=== PATIENT | male | born 1945 | race Caucasian/White ===

== ENCOUNTER 2016-10-23 06:11 | Day surgery (SDC) | payer MEDICARE, OTHER ==
[2016-10-23] MEDS ORDERED: LACTATED RINGERS 1,000 ML IV ONE ×3 (06:56→10:15)
[2016-10-23] MEDS ORDERED: ceFAZolin 1 GM VIAL ONE (07:06)
[2016-10-23] MEDS ORDERED: VANCOMYCIN INJ 1 GM in SODIUM CHLORIDE 0.9% 250 ML IV ONE (08:00)
[2016-10-23] MEDS ORDERED: BUPIVACAINE 0.5% PF 30 ML VIAL INFIL ONE ×2 (08:14→09:20)
[2016-10-23] MEDS ORDERED: DEXAMETHASONE 4 MG/ML VIAL IVP ONE (08:20)
[2016-10-23] MEDS ORDERED: LIDOCAINE-MPF 2% 5 ML VIAL IM ONE (08:20)
[2016-10-23] MEDS ORDERED: ROCURONIUM 50 MG/5 ML VIAL IVP ONE (08:20)
[2016-10-23] MEDS ORDERED: PROPOFOL 200 MG/20 ML VIAL IVP ONE (08:20)
[2016-10-23] MEDS ORDERED: ePHEDrine 50 MG/ML AMP IVP ONE (08:20)
[2016-10-23] MEDS ORDERED: MIDAZOLAM 2 MG/2 ML VIAL IVP ONE (08:20)
[2016-10-23] MEDS ORDERED: ONDANSETRON 4 MG/2 ML VIAL IVP ONE (08:20)
[2016-10-23] MEDS ORDERED: ACETAMINOPHEN 1,000 MG/100 ML VIAL IV ONE (08:20)
[2016-10-23] MEDS ORDERED: fentaNYL 100 MCG/2 ML VIAL IVP ONE (08:20)
[2016-10-23] MEDS ORDERED: SUCCINYLCHOLINE 200 MG/10 ML VIAL IVP ONE (08:20)
== END 2016-10-23 06:12 | disposition home or self-care (01) ==
PROC: 0YU54JZ Supplement Right Inguinal Region with Synthetic Substitute, Percutaneous Endoscopic Approach (ICD-10-PCS; principal; 2016-10-23 07:30)
DX: K40.90 Unilateral inguinal hernia, without obstruction or gangrene, not specified as recurrent (principal); I10 Essential (primary) hypertension; E78.5 Hyperlipidemia, unspecified; Z79.82 Long term (current) use of aspirin; Z82.49 Family history of ischemic heart disease and other diseases of the circulatory system; Z87.891 Personal history of nicotine dependence
CPT/HCPCS: 49650; C1781; J3370; J7120

== ENCOUNTER 2017-07-12 14:46 | Outpatient (CLI) | payer MEDICARE, OTHER ==
[2017-07-12 12:24] LABS: BASOPHILS # (AUTO) 0.1 10^3/uL (0.0-0.1); BASOPHILS % (AUTO) 1.1 %; EOSINOPHILS # (AUTO) 0.3 10^3/uL (0.0-0.7); EOSINOPHILS % (AUTO) 4.3 %; HCT - HEMATOCRIT 45.3 % (42.0-52.0); HGB - HEMOGLOBIN 15.4 g/dL (14.0-18.0); LYMPHOCYTES # (AUTO) 2.1 10^3/uL (1.5-3.5); LYMPHOCYTES % (AUTO) 34.1 %; MEAN CORPUSCULAR HEMOGLOBIN 32.2 pg (27.0-31.0); MEAN CORPUSCULAR HGB CONC 34.1 g/dL (32.0-36.0); MEAN CORPUSCULAR VOLUME 94.5 fL (80.0-94.0); MEAN PLATELET VOLUME 8.2 fL (7.4-11.4); MONOCYTES # (AUTO) 0.6 10^3/uL (0.0-1.0); MONOCYTES % (AUTO) 9.6 %; NEUTROPHILS # (AUTO) 3.1 10^3/uL (1.5-6.6); NEUTROPHILS % (AUTO) 50.9 %; RED BLOOD COUNT 4.79 10^6/uL (4.70-6.10)
[2017-07-12 12:49] LABS: ALBUMIN/GLOBULIN RATIO 1.4 (1.0-2.2); BILIRUBIN,TOTAL 0.6 mg/dL (0.2-1.0); BUN - BLOOD UREA NITROGEN 12 mg/dL (6-20); CALCIUM 8.8 mg/dL (8.5-10.3); CARBON DIOXIDE - CO2 27 mmol/L (21-32); CHLORIDE 103 mmol/L (101-111); CHOL/HDL RATIO 4.2 (<5.0); CHOLESTEROL 190 mg/dL; CREATININE 1.1 mg/dL (0.6-1.2); GFR - MDRD 66 (>89); GLUCOSE 83 mg/dL (70-100); HDL CHOLESTEROL 45 mg/dL; LDL/HDL RATIO 2.8 (<3.6); POTASSIUM 3.6 mmol/L (3.5-5.0); SODIUM 136 mmol/L (135-145); TOTAL PROTEIN 6.9 g/dL (6.7-8.2); TRIGLYCERIDES 87 mg/dL; VLDL CHOLESTEROL 17 mg/dL
== END 2017-07-12 14:47 | disposition home or self-care (01) ==
LOC: LAB.WCP 14:46
PROVIDERS: ATTEND Family Medicine
DX: K40.90 Unilateral inguinal hernia, without obstruction or gangrene, not specified as recurrent (principal); I10 Essential (primary) hypertension; Z12.5 Encounter for screening for malignant neoplasm of prostate; N40.0 Benign prostatic hyperplasia without lower urinary tract symptoms; E78.5 Hyperlipidemia, unspecified
CPT/HCPCS: 36415; 80053; 80061; 85025; G0103; 84153

== ENCOUNTER 2018-07-29 07:50 | Outpatient (CLI) | payer MEDICARE, OTHER ==
[2018-07-29 14:40] LABS: BASOPHILS % (AUTO) 0.9 %; EOSINOPHILS # (AUTO) 0.3 10^3/uL (0.0-0.7); EOSINOPHILS % (AUTO) 5.8 %; HGB - HEMOGLOBIN 14.2 g/dL (14.0-18.0); LYMPHOCYTES # (AUTO) 1.8 10^3/uL (1.5-3.5); LYMPHOCYTES % (AUTO) 35.1 %; MEAN CORPUSCULAR HEMOGLOBIN 32.2 pg (27.0-31.0); MEAN CORPUSCULAR HGB CONC 33.9 g/dL (32.0-36.0); MEAN CORPUSCULAR VOLUME 95.1 fL (80.0-94.0); MONOCYTES # (AUTO) 0.6 10^3/uL (0.0-1.0); MONOCYTES % (AUTO) 11.7 %; NEUTROPHILS # (AUTO) 2.4 10^3/uL (1.5-6.6); NEUTROPHILS % (AUTO) 46.5 %; PLT - PLATELET COUNT 256 10^3/uL (130-450); RED CELL DISTRIBUTION WIDTH 13.4 % (12.0-15.0); WHITE BLOOD COUNT 5.1 x10^3/uL (4.8-10.8)
[2018-07-29 15:04] LABS: ALBUMIN 3.8 g/dL (3.2-5.5); ALBUMIN/GLOBULIN RATIO 1.3 (1.0-2.2); ALKALINE PHOSPHATASE 48 IU/L (42-121); ALT ALANINE AMINOTRANSFERASE 14 IU/L (10-60); AST ASPARTATE AMINOTRANSFERASE 19 IU/L (10-42); BILIRUBIN,TOTAL 0.8 mg/dL (0.2-1.0); BUN - BLOOD UREA NITROGEN 19 mg/dL (6-20); CALCIUM 8.5 mg/dL (8.5-10.3); CARBON DIOXIDE - CO2 26 mmol/L (21-32); CHLORIDE 103 mmol/L (101-111); CHOL/HDL RATIO 4.3 (<5.0); CHOLESTEROL 188 mg/dL; CREATININE 1.1 mg/dL (0.6-1.2); GFR - MDRD 65 (>89); GLUCOSE 90 mg/dL (70-100); HDL CHOLESTEROL 44 mg/dL; LDL CHOLESTEROL,CALCULATED 119 mg/dL; LDL/HDL RATIO 2.7 (<3.6); SODIUM 137 mmol/L (135-145); TOTAL PROTEIN 6.7 g/dL (6.7-8.2); VLDL CHOLESTEROL 25 mg/dL
== END 2018-07-29 23:59 ==
LOC: LAB.WCP 07:50
PROVIDERS: ATTEND Family Medicine
DX: I10 Essential (primary) hypertension (principal); E78.9 Disorder of lipoprotein metabolism, unspecified; Z12.5 Encounter for screening for malignant neoplasm of prostate
CPT/HCPCS: 36415; 80053; 80061; 85025; G0103; 83721; 84153

== ENCOUNTER 2020-05-05 08:09 | Outpatient (CLI) | payer MEDICARE, OTHER ==
[2020-05-05 12:18] LABS: BASOPHILS # (AUTO) 0.1 10^3/uL (0.0-0.1); BASOPHILS % (AUTO) 1.5 %; EOSINOPHILS # (AUTO) 0.2 10^3/uL (0.0-0.7); EOSINOPHILS % (AUTO) 4.6 %; LYMPHOCYTES # (AUTO) 1.5 10^3/uL (1.5-3.5); LYMPHOCYTES % (AUTO) 31.5 %; MEAN CORPUSCULAR HEMOGLOBIN 32.7 pg (27.0-31.0); MEAN CORPUSCULAR HGB CONC 33.8 g/dL (32.0-36.0); MEAN CORPUSCULAR VOLUME 96.7 fL (80.0-94.0); MEAN PLATELET VOLUME 10.6 fL (7.4-11.4); MONOCYTES # (AUTO) 0.5 10^3/uL (0.0-1.0); MONOCYTES % (AUTO) 9.9 %; NEUTROPHILS # (AUTO) 2.5 10^3/uL (1.5-6.6); NEUTROPHILS % (AUTO) 52.1 %; PLT - PLATELET COUNT 272 10^3/uL (130-450); RED BLOOD COUNT 4.59 10^6/uL (4.70-6.10); RED CELL DISTRIBUTION WIDTH 13.2 % (12.0-15.0); WHITE BLOOD COUNT 4.8 x10^3/uL (4.8-10.8)
[2020-05-05 12:45] LABS: ALBUMIN 4.3 g/dL (3.2-5.5); ALBUMIN/GLOBULIN RATIO 1.7 (1.0-2.2); ALKALINE PHOSPHATASE 48 IU/L (42-121); ALT ALANINE AMINOTRANSFERASE 21 IU/L (10-60); AST ASPARTATE AMINOTRANSFERASE 24 IU/L (10-42); BILIRUBIN,TOTAL 0.7 mg/dL (0.2-1.0); BUN - BLOOD UREA NITROGEN 14 mg/dL (6-20); CARBON DIOXIDE - CO2 26 mmol/L (21-32); CHLORIDE 104 mmol/L (101-111); CHOL/HDL RATIO 3.6 (<5.0); CHOLESTEROL 150 mg/dL; GLUCOSE 87 mg/dL (70-100); HDL CHOLESTEROL 42 mg/dL; LDL CHOLESTEROL,CALCULATED 90 mg/dL; LDL/HDL RATIO 2.1 (<3.6); SODIUM 137 mmol/L (135-145); TOTAL PROTEIN 6.9 g/dL (6.7-8.2); VLDL CHOLESTEROL 18 mg/dL
== END 2020-05-05 23:59 | disposition home or self-care (01) ==
LOC: LAB.WCP 08:09
PROVIDERS: ATTEND Family Medicine
DX: I10 Essential (primary) hypertension (principal); E78.5 Hyperlipidemia, unspecified; Z12.5 Encounter for screening for malignant neoplasm of prostate
CPT/HCPCS: 36415; 80053; 80061; 84443; 85025; G0103; 83721; 84153

== ENCOUNTER 2020-10-08 12:11 | Observation (INO) | payer MEDICARE, OTHER ==
[2020-10-08 12:48] LABS: BASOPHILS # (AUTO) 0.1 10^3/uL (0.0-0.1); BASOPHILS % (AUTO) 1.4 %; EOSINOPHILS % (AUTO) 0.5 %; HGB - HEMOGLOBIN 15.5 g/dL (14.0-18.0); LYMPHOCYTES # (AUTO) 1.3 10^3/uL (1.5-3.5); LYMPHOCYTES % (AUTO) 22.6 %; MEAN CORPUSCULAR HEMOGLOBIN 31.1 pg (27.0-31.0); MEAN CORPUSCULAR HGB CONC 33.3 g/dL (32.0-36.0); MEAN CORPUSCULAR VOLUME 93.4 fL (80.0-94.0); MEAN PLATELET VOLUME 10.1 fL (7.4-11.4); MONOCYTES # (AUTO) 0.4 10^3/uL (0.0-1.0); MONOCYTES % (AUTO) 7.3 %; PLT - PLATELET COUNT 256 10^3/uL (130-450); RED BLOOD COUNT 4.99 10^6/uL (4.70-6.10); RED CELL DISTRIBUTION WIDTH 13.2 % (12.0-15.0); WHITE BLOOD COUNT 5.9 x10^3/uL (4.8-10.8)
--- NOTE | 2020-10-08 12:49 | ED Physician Documentation ---
History of Present Illness - Stated complaint Stated Complaint: BLOODY STOOL - Chief complaint Chief Complaint: Abd Pain - Additonal information Additional information: This is a very well-appearing 75-year-old male that presents to the emergency department for evaluation of both hematochezia and melena. He reports that last night he had a softer bowel movement that was black and tarry. This morning he is also had some black stools but has also noticed an increased amount of bright red stool. He denies any abdominal pain. No recent illness. No vomiting. does not feel light headed. no near syncope. no dizziness He does take about 400 mg of ibuprofen daily. He is not taking any anticoagulants or is on Coumadin. Does report that in 2008 at the time of his last colonoscopy he was told that he had diverticulosis. Patient quit smoking and drinking about 35 years ago. He is otherwise healthy and exercises daily PMH: Hypertension, hyperlipidemia Meds: 81 mg aspirin daily, atorvastatin daily, amlodipine 10 mg daily. Review of Systems Constitutional: denies: Fever, Chills Eyes: denies: Loss of vision, Decreased vision Ears: reports: Reviewed and negative Nose: reports: Reviewed and negative Throat: reports: Reviewed and negative Cardiac: reports: Reviewed and negative Respiratory: reports: Reviewed and negative GI: reports: Bloody / black stool, Reviewed and negative. denies: Abdominal Pain, Abdominal Swelling, Nausea, Vomiting, Hematemesis : denies: Dysuria, Frequency, Hesitancy Skin: denies: Rash, Lesions Musculoskeletal: reports: Reviewed and negative Neurologic: reports: Reviewed and negative PD PAST MEDICAL HISTORY - Past Medical History Cardiovascular: Hypertension, High cholesterol Respiratory: None Endocrine/Autoimmune: None GI: None : Benign prostate hypertrophy, Retention, Nocturia HEENT: Chronic vision loss, Dental implants Psych: None Musculoskeletal: None Derm: None - Past Surgical History General: Colonoscopy HEENT: Tonsil/Adenoidectomy - Present Medications Home Medications: Ambulatory Orders Medication Instructions Recorded Confirmed Aspirin 81 mg PO DAILY 09/01/16 10/23/16 Simvastatin 20 mg PO DAILY 09/01/16 10/23/16 Amlodipine Besylate [Norvasc] 10/08/20 - Allergies Allergies/Adverse Reactions: Allergies Allergy/AdvReac Type Severity Reaction Status Date / Time amoxicillin Allergy Rash Verified 09/01/16 13:52 PD ED PE EXPANDED - General General: Alert, No acute distress, Well developed/nourished - Neck Neck: Supple w/out meningeal sx. No: Adenopathy - Cardiac Cardiac: Regular Rate, Regular Rhythm, Radial strong equal, Pedal strong equal, Cap refill < 2 sec. No: Murmur Present - Respiratory Respiratory: Clear to ausultation lorraine. No: Distress, Labored - Abdomen Abdomen: Normal Bowel sounds. No: Distended, Tender to palpation - Rectal Rectal: Normal Tone, Other (Digital rectal exam reveals a large amount of Hematochezia) - Back Back: Normal exam. No: Vertebral tenderness, Soft tissue tenderness - Derm Derm: Normal color. No: Rash - Extremities Extremities: Normal. No: Deformity, Tenderness - Neuro Neuro: Alert and Oriented X 3, CNII-XII intact. No: Confused, Disoriented - GCS Eye Opening: Spontaneous Motor: Obeys Commands Verbal: Oriented Total: 15 Results - Vitals Vitals: Vital Signs - 24 hr 10/08/20 10/08/20 10/08/20 12:24 13:35 14:50 Temperature 36.8 C Heart Rate 85 72 70 Respiratory 16 18 18 Rate Blood Pressure 185/104 H 158/97 H 176/95 H O2 Saturation 99 99 99 Oxygen O2 Source Room air - EKG (time done) 1259 Rate: Rate (enter#) (64) Rhythm: Atrial fibrillation (possible flutter as well) [place]: Other (abnormal ) Intervals: No: Prolonged QT QRS: Normal Ischemia: Non specific changes (t wave flattening inferior lead) Compare to prior EKG: Old EKG unavailable Computer interpretation: Agree with computer - Labs Labs: Laboratory Tests 10/08/20 10/08/20 10/08/20 12:37 12:37 12:37 WBC 5.9 RBC 4.99 Hgb 15.5 Hct 46.6 MCV 93.4 MCH 31.1 H MCHC 33.3 RDW 13.2 Plt Count 256 MPV 10.1 Neut # (Auto) 4.0 Lymph # (Auto) 1.[address] [place] # (Auto) 0.4 Eos # (Auto) 0.0 Baso # (Auto) 0.1 Absolute Nucleated RBC 0.00 Nucleated RBC % 0.0 PT 14.1 H INR 1.3 H Sodium 143 Potassium 4.3 Chloride 101 Carbon Dioxide 24 Anion Gap 18.0 H BUN 21 H Creatinine 1.2 Estimated GFR (MDRD) 59 L Glucose 109 H Calcium 10.1 Total Bilirubin 0.6 AST 26 ALT 22 Alkaline Phosphatase 64 Total Protein 8.0 Albumin 4.8 Globulin 3.2 Albumin/Globulin Ratio 1.5 Lipase 29 Urine Color Urine Clarity Urine pH Ur Specific Alvin Urine Protein Urine Glucose (UA) Urine Ketones Urine Occult Blood Urine Nitrite Urine Bilirubin Urine Urobilinogen Ur Leukocyte Esterase Ur Microscopic Review Urine Culture Comments Blood Type Blood Type Recheck Antibody Screen 10/08/20 10/08/20 10/08/20 12:55 13:14 13:41 WBC RBC Hgb Hct MCV MCH MCHC RDW Plt Count MPV Neut # (Auto) Lymph # (Auto) [place] # (Auto) Eos # (Auto) Baso # (Auto) Absolute Nucleated RBC Nucleated RBC % PT INR Sodium Potassium Chloride Carbon Dioxide Anion Gap BUN Creatinine Estimated GFR (MDRD) Glucose Calcium Total Bilirubin AST ALT Alkaline Phosphatase Total Protein Albumin Globulin Albumin/Globulin Ratio Lipase Urine Color YELLOW Urine Clarity CLEAR Urine pH 6.0 Ur Specific Alvin 1.025 Urine Protein NEGATIVE Urine Glucose (UA) NEGATIVE Urine Ketones NEGATIVE Urine Occult Blood NEGATIVE Urine Nitrite NEGATIVE Urine Bilirubin NEGATIVE Urine Urobilinogen 0.2 (NORMAL) Ur Leukocyte Esterase NEGATIVE Ur Microscopic Review NOT INDICATED Urine Culture Comments NOT INDICATED Blood Type A POSITIVE Blood Type Recheck A POSITIVE Antibody Screen NEGATIVE - Rads (name of study) CT abd Radiology: Final report received (Colonic diverticulosis without acute diverticulitis. No discrete bowel wall thickening or mass lesions identified. Small cortical region of hypoenhancement in the left kidney without a discrete mass visualized. Findings are nonspecific.) PD MEDICAL DECISION MAKING - ED course Complexity details: reviewed results, re-evaluated patient, considered differential, d/w patient ED course: 75-year-old male presents the emergency department with acute melena and now hematochezia that began last night. He has no fevers vomiting abdominal pain or near syncope. He is hemodynamically stable. Screening EKG today does reveal that he is in atrial fib/flutter. This is a new finding for the gentleman. However he denies any known history of atrial fibrillation though he says over the last few months his blood pressure monitors have showed an irregular heart rate. High-sensitivity troponin is negative. Screening hemoglobin is greater than 15. Electrolytes unremarkable. This case was discussed with Dr. Juanito Edmonds the on- call surgeon today. It is possible to admit this patient to the hospital for a colonoscopy over the weekend however Dr. Edmonds would not be the one to do it. I did speak with the surgeon on-call tomorrow Dr. Fall and she feels it is appropriate to bring the patient into the hospital for scoping. Bowel prep will began this evening. I did speak with the on-call hospitalist And show to he agrees to bring patient in on an observation status for further management of the GI bleed. Unfortunately given the active bleed anticoagulation is not possible for this gentleman but moving forward he will need cardiology consultation and outpatient stress test and risk stratification. Today's chads vas 2 score is a 3. Departure - Departure Disposition: ED Place in Observation Clinical Impression: Atrial fibrillation and flutter GI bleed Qualifiers: GI bleed type/associated pathology: unspecified gastrointestinal hemorrhage type Qualified Code(s): K92.2 - Gastrointestinal hemorrhage, unspecified
[2020-10-08 13:01] LABS: ALBUMIN 4.8 g/dL (3.2-5.5); ALBUMIN/GLOBULIN RATIO 1.5 (1.0-2.2); BILIRUBIN,TOTAL 0.6 mg/dL (0.2-1.0); CALCIUM 10.1 mg/dL (8.5-10.3); CREATININE 1.2 mg/dL (0.6-1.2)
[2020-10-08 13:10] LABS: INR 1.3 (0.8-1.2); PT - PROTHROMBIN TIME 14.1 secs (9.9-12.6)
[2020-10-08] MEDS ORDERED: IOVERSOL 320 100 ML VIAL IVP ONE ×2 (13:23→15:18)
[2020-10-08 13:32] LABS: BILIRUBIN,URINE NEGATIVE (NEGATIVE); GLUCOSE, URINE (UA) NEGATIVE (NEGATIVE); KETONES,URINE (UA) NEGATIVE (NEGATIVE); LEUKOCYTE ESTERASE, URINE NEGATIVE (NEGATIVE); NITRITE,URINE NEGATIVE (NEGATIVE); OCCULT BLOOD,URINE NEGATIVE (NEGATIVE); PROTEIN,URINE NEGATIVE (NEGATIVE); UROBILINOGEN,URINE 0.2 (NORMAL) E.U./dL (NORMAL)
[2020-10-08 13:33] LABS: CLARITY,URINE CLEAR (CLEAR)
--- NOTE | 2020-10-08 13:45 | CT Report ---
PROCEDURE: Abdomen/Pelvis W INDICATIONS: bloody stool CONTRAST: IV CONTRAST: Optiray 320 ml: 100 PO CONTRAST: *NO PO CONTRAST TECHNIQUE: After the administration of intravenous contrast, 5 mm thick sections acquired from the diaphragms to the symphysis. 5 mm thick coronal and sagittal reformats were acquired. For radiation dose reducti on, the following was used: automated exposure control, adjustment of mA and/or kV according to [place] ent size. COMPARISON: None. FINDINGS: Image quality: Excellent. ABDOMEN: Lung bases: There is mild dependent atelectasis bilaterally. Heart size is enlarged. There is a small hiatal hernia. Solid organs: Evaluation of the liver demonstrates no focal hepatic lesions. Gallbladder appears wit hin normal limits without calcified gallstones. Biliary system is non dilated. The spleen is normal in size. Pancreas enhances normally without peripancreatic fat stranding or fluid collections. No ad renal nodules. Kidneys demonstrate no hydronephrosis. There is a small indistinct region of cortical hypoenhancement posteriorly in the left kidney. Peritoneum and bowel: Small bowel loops demonstrate normal wall thickness and caliber. The appendix i s normal in appearance. Extensive diverticulosis is demonstrated throughout the colon without wall th ickening or inflammatory fat stranding to suggest acute diverticulitis. No discrete mass is visualize d. There are air-fluid levels within the distal colon suggestive of a gastroenteritis. No free fluid or air. Nodes and vessels: No retroperitoneal or mesenteric adenopathy by size criteria. Aorta and inferior vena cava are normal in size. Miscellaneous: No ventral hernias. PELVIS: Genitourinary: Bladder wall thickness is normal. Miscellaneous: No inguinal hernias or adenopathy. Bones: No suspicious bony lesions. No vertebral body compression fractures. IMPRESSION: 1. Colonic diverticulosis without acute diverticulitis. 2. No discrete bowel wall thickening or mass lesions identified. Recommend follow-up with colonoscopy if clinically indicated. 3. Small cortical region of hypoenhancement in the left kidney without a discrete mass visualized. Th e findings are nonspecific and may represent sequelae of infection, trauma, or infarct. No perinephri c fat stranding or fluid collections. Reviewed by: Oumar Quinones MD on 10/08/2020 1:44 PM PST Approved by: Oumar Quinones MD on 10/08/2020 1:44 PM PST Station ID: [id number]
[2020-10-08] MEDS ORDERED: SODIUM CHLORIDE FLUSH 0.9% 10 ML SYRINGE IVP PRN (14:11)
[2020-10-08] MEDS ORDERED: SODIUM CHLORIDE 0.9% 1,000 ML IV STA (14:48)
--- NOTE | 2020-10-08 15:58 | HISTORY & PHYSICAL EXAMINATION ---
Chief Complaint - Chief Complaint Chief Complaint: black stool , and blood in toilet bowl History of Present Illness - Admitted From Admitted From:: home - History Obtained From Records Reviewed: ED notes History obtained from: patient , ED notes - History of Present Illness HPI Comment/Other: Mr Guerrero is a 75 yo male who presented to the ED after reports of black stool starting last evening , with some bright red blood in bowl, which happened again this morning. No corresponidng near syncope, chsst pain, diaphroesis, palpitations when upright. No hx GIBleed. He does take daily ASA 81mg for "prevention; and takes 1-2 200 mg Ibuprofens each morning for "the various aches and pains that come with age 75". Not on anticoagulation. Denies epigastric pain, no hematemeis or other emesis. No heavy ETOH use. Non smoker.non drinker (last 35+ yrs ago) In the ED he was hemodynamically stable (actually hypertensive), and did have witnessed BRBPR in ED. (also seen by me, red blood in toilet bowl andsmall bits of black stool; no melena when seen by me). NO clots Pt denies hx of hemorrhoids. no significant BUN increase CT abd done in Ed notable for extensive diverticulsis/ no itis. Had colonoscopy in 2008, just diverticulosis found. Incidentally in the ED he was found to be in rate controlled atrial fibrillation/atrial flutter. History - Past Medical History Cardiovascular: reports: Hypertension, High cholesterol Respiratory: reports: None Endocrine/Autoimmune: reports: None GI: reports: None : reports: Benign prostate hypertrophy, Retention, Nocturia HEENT: reports: Chronic vision loss, Dental implants Psych: reports: None Musculoskeletal: reports: None Derm: reports: None MRSA Hx?: No - Past Surgical History General: reports: Colonoscopy HEENT: reports: Tonsil/Adenoidectomy - Family & Social History Family History: Mother: (mom old age, dad gI sepsis), Father: , CAD ([place] dad and brother at 48 [place]), Brother: CAD Family History Comment/Other: 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 One sister healthy, his brother of [place] at 48 Living arrangement: At home - Substance History Use: Uses substance without health or social issues: NONE Meds/Allgy - Home Medications Home Medications: Ambulatory Orders Medication Instructions Recorded Confirmed Aspirin 81 mg PO DAILY 09/01/16 10/08/20 Simvastatin 20 mg PO DAILY 09/01/16 10/23/16 Amlodipine Besylate [Norvasc] 10/08/20 - Allergies Allergies/Adverse Reactions: Allergies Allergy/AdvReac Type Severity Reaction Status Date / Time amoxicillin Allergy Rash Verified 09/01/16 13:52 Review of Systems - Constitutional Constitutional: denies: Fatigue, Fever, Chills, Diaphoresis, Night sweats, Weight gain, Weight loss - Eyes Eyes: reports: Corrective lenses. denies: Field loss, Vision loss - Cardiovascular Cariovascular: denies: Irregular heart rate, Lightheadedness, Syncope, Exertional dyspnea, Orthopnea - Respiratory Respiratory: denies: Cough, Wheezing, Orthopnea, SOB at rest, SOB with exertion - Gastrointestinal Gastrointestinal: reports: Black stools, Other (as per HPI). denies: Abdominal pain, Rectal bleeding - Genitourinary Genitourinary: reports: Frequency, Other (BPH) - Musculoskeletal Musculoskeletal: reports: Joint pain (osteoarthritic joint pain, no erythema or warmth) - Integumentary Integumentary: denies: Rash - Neurological Neurological: denies: General weakness, Focal weakness, Dizziness, Memory problems, Abnormal gait - Psychiatric Psychiatric: denies: Depression - Endocrine Endocrine: denies: Intolerance to cold, Intolerance to heat Exam - Vital Signs Reviewed Vital Signs: Yes Vital Signs: Vital Signs x48h Temp Pulse Resp BP Pulse Ox 10/08/20 15:30 36.2 C L 72 18 140/87 H 99 10/08/20 14:50 70 18 176/95 H 99 10/08/20 13:35 72 18 158/97 H 99 10/08/20 12:24 36.8 C 85 16 185/104 H 99 - Physical Exam General Appearance: positive: No acute distress, Alert, Other (Pleasant older male, lying on stretcher in ED, no significant pallor, able to get up to use bathroom, no lightheadedness) Eyes Bilateral: positive: PERRL, EOMI, Other (glasses) ENT: positive: No signs of dehydration, Other (partial dentures upper and lower) Neck: positive: No JVD. negative: Carotid bruit Respiratory: positive: Chest non-tender, No respiratory distress, Breath sounds nml Cardiovascular: positive: Regular rate & rhythm, Irregularly irregular ( rate controlled ~ 70's, aflutter on ED monitor), Systolic murmur (2/6 SM, holosystolic). negative: Tachycardia Abdomen: positive: Nml bowel sounds, No distention, Other (no epigastric tenderness). negative: Tenderness Skin: positive: Warm, Dry. negative: Pallor Extremities: negative: Pedal edema Neurologic/Psychiatric: positive: Oriented x3, Mood/affect nml Conclusion/Plan - Problem List (1) GI bleed Conclusion/Plan: hemodynamically stable, not symptomatically orthostatic in ED or before arrival check baseline orthostatics on arrival to floor Upper GIB risk of daily ASA and NSAID (but BRBPR suggestive of lower)/ diverticular ? w diverticulosis on CT. No clots ED contacted DR Guevara who is on this weekend re: EGD andcolonoscopy 10/09 NPO after MN Suprep tonight recheck h/h at 9p (and will get INR at that time/ doubt elevated) NS at 100cc/hr Code status ; full Qualifiers: GI bleed type/associated pathology: unspecified gastrointestinal hemorrhage type Qualified Code(s): K92.2 - Gastrointestinal hemorrhage, unspecified (2) Atrial fibrillation and flutter Conclusion/Plan: no prior diagnosis asymptomatic no hx symptoms suggestive of TIA or stroke (and no deficits on exam) -[id number] =3 3.2 % stroke risk / yr, 4.6% risk stroke/TIA/systemic embolism; warrants anticoagulation after eg bleed evaluated/controlled Discussed w/ patient /initaled discussion of anticoagulation for stroke prevention rate controlled, no indication for BB or CCB currently but could consider change amlodipine to nondihydropiridine CCB -check TSH -tele while here -cant get echo this weekend; further eval as outpt, has never had ischemic symtpoms (3) Osteoarthritis Conclusion/Plan: On d/c if upper GIb source identified ASA should stop on d/c ; has family hx of CAD but data not good for primary prevention; bleed risk outweighss benefit; and as per #2, warrants anticoagulation once GI bleed source addressed (4) Hypertension Conclusion/Plan: on amlodipine at home modest elevation on admit In event of more brisk bleed, will hold amlodipine - Lab Results Fish Bones: 10/08/20 12:37 10/08/20 12:37
[2020-10-08] MEDS: SODIUM CHLORIDE 0.9% 1,000 ML IV SCH (16:27)
[2020-10-08] MEDS: SODIUM CHLORIDE FLUSH 0.9% 10 ML SYRINGE IVP SCH (16:27)
[2020-10-08 16:54] LABS: C. PNEUMONIAE- RESP PCR PANEL NOT DETECTED
--- NOTE | 2020-10-08 17:25 | HISTORY & PHYSICAL EXAMINATION ---
Chief Complaint - Chief Complaint Chief Complaint: dark stool and bloody stool several times over the last 24 hours GI Bleed Admit Template - History Obtained From History obtained from: Patient Exam limitations: No limitations - History of Present Illness Severity at the worst: reports: Mild Bleeding quality: reports: Black, tarry stool, Arben blood stool Context-bleeding started w/: reports: Spontaneous Timing: reports: Abrupt onset Duration: reports: Hours: (18 hours) HPI Comment/Other: He denies any abdominal discomfort or upper or lower intestinal symptoms. He had dark stool last pm and then bloody stool today. He takes an aspirin daily and ibuprofen with breakfast 1 or 2 a few times per week. No prior history of bleeding. Last colonoscopy was in 2008. PMH/PSH - Past Medical History Cardiovascular: positive: Hypertension, High cholesterol Respiratory: positive: None Endocrine/Autoimmune: positive: None GI: positive: None : positive: Benign prostate hypertrophy, Retention, Nocturia HEENT: positive: Chronic vision loss, Dental implants Psych: positive: None Musculoskeletal: positive: None Derm: positive: None MRSA Hx?: No - Past Surgical History General: positive: Colonoscopy HEENT: positive: Tonsil/Adenoidectomy Social & Family Hx - Social History Does the pt smoke?: No Smoking Status: Never smoker Meds/Allgy - Home Medications Home Medications: Ambulatory Orders Medication Instructions Recorded Confirmed Aspirin 81 mg PO DAILY 09/01/16 10/08/20 Simvastatin 20 mg PO DAILY 09/01/16 10/23/16 Amlodipine Besylate [Norvasc] 10/08/20 - Allergies Allergies/Adverse Reactions: Allergies Allergy/AdvReac Type Severity Reaction Status Date / Time amoxicillin Allergy Rash Verified 09/01/16 13:52 Review of Systems - Other Findings Other Findings: 10 pt ros as above otherwise unremarkable Exam - Vital Signs Reviewed Vital Signs: Yes Vital Signs: Vital Signs x48h Temp Pulse Pulse Resp BP BP Pulse Ox 10/08/20 16:00 36.5 C 68 18 149/90 H 100 10/08/20 15:30 36.2 C L 72 18 140/87 H 99 10/08/20 14:50 70 18 176/95 H 99 10/08/20 13:35 72 18 158/97 H 99 10/08/20 12:24 36.8 C 85 16 185/104 H 99 - Physical Exam General Appearance: positive: No acute distress, Alert Eyes Bilateral: positive: Normal inspection, PERRL ENT: positive: No signs of dehydration Neck: positive: No JVD Respiratory: positive: No respiratory distress Cardiovascular: positive: Irregularly irregular Abdomen: positive: Non-tender, No distention Neurologic/Psychiatric: positive: Oriented x3 Results - Lab Results Fish Bones: 10/08/20 12:37 10/08/20 12:37 Other Lab Results: Lab Results x24hrs 10/08/20 10/08/20 10/08/20 Range/Units 15:45 13:41 13:14 WBC (4.8-10.8) x10^3/uL RBC (4.70-6.10) 10^6/uL Hgb (14.0-18.0) g/dL Hct (42.0-52.0) % MCV (80.0-94.0) fL MCH (27.0-31.0) pg MCHC (32.0-36.0) g/dL RDW (12.0-15.0) % Plt Count (130-450) 10^3/uL MPV (7.4-11.4) fL Neut # (Auto) (1.5-6.6) 10^3/uL Lymph # (Auto) (1.5-3.5) 10^3/uL [place] # (Auto) (0.0-1.0) 10^3/uL Eos # (Auto) (0.0-0.7) 10^3/uL Baso # (Auto) (0.0-0.1) 10^3/uL Absolute Nucleated RBC x10^3/uL Nucleated RBC % /100WBC PT (9.9-12.6) secs INR (0.8-1.2) Sodium (135-145) mmol/L Potassium (3.5-5.0) mmol/L Chloride (101-111) mmol/L Carbon Dioxide (21-32) mmol/L Anion Gap (6-13) BUN (6-20) mg/dL Creatinine (0.6-1.2) mg/dL Estimated GFR (MDRD) (>89) Glucose (70-100) mg/dL Calcium (8.5-10.3) mg/dL Total Bilirubin (0.2-1.0) mg/dL AST (10-42) IU/L ALT (10-60) IU/L Alkaline Phosphatase (42-121) IU/L Total Protein (6.7-8.2) g/dL Albumin (3.2-5.5) g/dL Globulin (2.1-4.2) g/dL Albumin/Globulin Ratio (1.0-2.2) Lipase (22-51) U/L Urine Color YELLOW Urine Clarity CLEAR (CLEAR) Urine pH 6.0 (5.0-7.5) PH Ur Specific [place] 1.025 (1.002-1.030) Urine Protein NEGATIVE (NEGATIVE) mg/dL Urine Glucose (UA) NEGATIVE (NEGATIVE) mg/dL Urine Ketones NEGATIVE (NEGATIVE) mg/dL Urine Occult Blood NEGATIVE (NEGATIVE) Urine Nitrite NEGATIVE (NEGATIVE) Urine Bilirubin NEGATIVE (NEGATIVE) Urine Urobilinogen 0.2 (NORMAL) (NORMAL) E.U./dL Ur Leukocyte Esterase NEGATIVE (NEGATIVE) Ur Microscopic Review NOT INDICATED Urine Culture Comments NOT INDICATED Nasal Adenovirus (PCR) NOT DETECTED Nasal B. parapertussis DNA (PCR) NOT DETECTED Nasal Coronavir 229E PCR NOT DETECTED Nasal Coronavir HKU1 PCR NOT DETECTED Nasal Coronavir NL63 PCR NOT DETECTED Nasal Coronavir OC43 PCR NOT DETECTED Nasal Enterovir/Rhinovir PCR NOT DETECTED Nasal Influenza B PCR NOT DETECTED Nasal Influenza A PCR NOT DETECTED Nasal Parainfluen 1 PCR NOT DETECTED Nasal Parainfluen 2 PCR NOT DETECTED Nasal Parainfluen 3 PCR NOT DETECTED Nasal Parainfluen 4 PCR NOT DETECTED Nasal RSV (PCR) NOT DETECTED Nasal B.pertussis DNA PCR NOT DETECTED Nasal C.pneumoniae (PCR) NOT DETECTED [place] Human Metapneumo PCR NOT DETECTED Nasal M.pneumoniae (PCR) NOT DETECTED Nasal SARS-CoV-2 (PCR) NOT DETECTED Blood Type Blood Type Recheck A POSITIVE Antibody Screen 10/08/20 10/08/20 10/08/20 Range/Units 12:55 12:37 12:37 WBC (4.8-10.8) x10^3/uL RBC (4.70-6.10) 10^6/uL Hgb (14.0-18.0) g/dL Hct (42.0-52.0) % MCV (80.0-94.0) fL MCH (27.0-31.0) pg MCHC (32.0-36.0) g/dL RDW (12.0-15.0) % Plt Count (130-450) 10^3/uL MPV (7.4-11.4) fL Neut # (Auto) (1.5-6.6) 10^3/uL Lymph # (Auto) (1.5-3.5) 10^3/uL [place] # (Auto) (0.0-1.0) 10^3/uL Eos # (Auto) (0.0-0.7) 10^3/uL Baso # (Auto) (0.0-0.1) 10^3/uL Absolute Nucleated RBC x10^3/uL Nucleated RBC % /100WBC PT 14.1 H (9.9-12.6) secs INR 1.3 H (0.8-1.2) Sodium 143 (135-145) mmol/L Potassium 4.3 (3.5-5.0) mmol/L Chloride 101 (101-111) mmol/L Carbon Dioxide 24 (21-32) mmol/L Anion Gap 18.0 H (6-13) BUN 21 H (6-20) mg/dL Creatinine 1.2 (0.6-1.2) mg/dL Estimated GFR (MDRD) 59 L (>89) Glucose 109 H (70-100) mg/dL Calcium 10.1 (8.5-10.3) mg/dL Total Bilirubin 0.6 (0.2-1.0) mg/dL AST 26 (10-42) IU/L ALT 22 (10-60) IU/L Alkaline Phosphatase 64 (42-121) IU/L Total Protein 8.0 (6.7-8.2) g/dL Albumin 4.8 (3.2-5.5) g/dL Globulin 3.2 (2.1-4.2) g/dL Albumin/Globulin Ratio 1.5 (1.0-2.2) Lipase 29 (22-51) U/L Urine Color Urine Clarity (CLEAR) Urine pH (5.0-7.5) PH Ur Specific [place] (1.002-1.030) Urine Protein (NEGATIVE) mg/dL Urine Glucose (UA) (NEGATIVE) mg/dL Urine Ketones (NEGATIVE) mg/dL Urine Occult Blood (NEGATIVE) Urine Nitrite (NEGATIVE) Urine Bilirubin (NEGATIVE) Urine Urobilinogen (NORMAL) E.U./dL Ur Leukocyte Esterase (NEGATIVE) Ur Microscopic Review Urine Culture Comments Nasal Adenovirus (PCR) Nasal B. parapertussis DNA (PCR) Nasal Coronavir 229E PCR Nasal Coronavir HKU1 PCR Nasal Coronavir NL63 PCR Nasal Coronavir OC43 PCR Nasal Enterovir/Rhinovir PCR Nasal Influenza B PCR Nasal Influenza A PCR Nasal Parainfluen 1 PCR Nasal Parainfluen 2 PCR Nasal Parainfluen 3 PCR Nasal Parainfluen 4 PCR Nasal RSV (PCR) Nasal B.pertussis DNA PCR Nasal C.pneumoniae (PCR) [place] Human Metapneumo PCR Nasal M.pneumoniae (PCR) Nasal SARS-CoV-2 (PCR) Blood Type A POSITIVE Blood Type Recheck Antibody Screen NEGATIVE 10/08/20 Range/Units 12:37 WBC 5.9 (4.8-10.8) x10^3/uL RBC 4.99 (4.70-6.10) 10^6/uL Hgb 15.5 (14.0-18.0) g/dL Hct 46.6 (42.0-52.0) % MCV 93.4 (80.0-94.0) fL MCH 31.1 H (27.0-31.0) pg MCHC 33.3 (32.0-36.0) g/dL RDW 13.2 (12.0-15.0) % Plt Count 256 (130-450) 10^3/uL MPV 10.1 (7.4-11.4) fL Neut # (Auto) 4.0 (1.5-6.6) 10^3/uL Lymph # (Auto) 1.3 L (1.5-3.5) 10^3/uL [place] # (Auto) 0.4 (0.0-1.0) 10^3/uL Eos # (Auto) 0.0 (0.0-0.7) 10^3/uL Baso # (Auto) 0.1 (0.0-0.1) 10^3/uL Absolute Nucleated RBC 0.00 x10^3/uL Nucleated RBC % 0.0 /100WBC PT (9.9-12.6) secs INR (0.8-1.2) Sodium (135-145) mmol/L Potassium (3.5-5.0) mmol/L Chloride (101-111) mmol/L Carbon Dioxide (21-32) mmol/L Anion Gap (6-13) BUN (6-20) mg/dL Creatinine (0.6-1.2) mg/dL Estimated GFR (MDRD) (>89) Glucose (70-100) mg/dL Calcium (8.5-10.3) mg/dL Total Bilirubin (0.2-1.0) mg/dL AST (10-42) IU/L ALT (10-60) IU/L Alkaline Phosphatase (42-121) IU/L Total Protein (6.7-8.2) g/dL Albumin (3.2-5.5) g/dL Globulin (2.1-4.2) g/dL Albumin/Globulin Ratio (1.0-2.2) Lipase (22-51) U/L Urine Color Urine Clarity (CLEAR) Urine pH (5.0-7.5) PH Ur Specific [place] (1.002-1.030) Urine Protein (NEGATIVE) mg/dL Urine Glucose (UA) (NEGATIVE) mg/dL Urine Ketones (NEGATIVE) mg/dL Urine Occult Blood (NEGATIVE) Urine Nitrite (NEGATIVE) Urine Bilirubin (NEGATIVE) Urine Urobilinogen (NORMAL) E.U./dL Ur Leukocyte Esterase (NEGATIVE) Ur Microscopic Review Urine Culture Comments Nasal Adenovirus (PCR) Nasal B. parapertussis DNA (PCR) Nasal Coronavir 229E PCR Nasal Coronavir HKU1 PCR Nasal Coronavir NL63 PCR Nasal Coronavir OC43 PCR Nasal Enterovir/Rhinovir PCR Nasal Influenza B PCR Nasal Influenza A PCR Nasal Parainfluen 1 PCR Nasal Parainfluen 2 PCR Nasal Parainfluen 3 PCR Nasal Parainfluen 4 PCR Nasal RSV (PCR) Nasal B.pertussis DNA PCR Nasal C.pneumoniae (PCR) [place] Human Metapneumo PCR Nasal M.pneumoniae (PCR) Nasal SARS-CoV-2 (PCR) Blood Type Blood Type Recheck Antibody Screen Impression/Plan - Problem List Problem List: Gi bleed of unknown source. ct scan IMPRESSION: 1. Colonic diverticulosis without acute diverticulitis. 2. No discrete bowel wall thickening or mass lesions identified. Recommend follow-up with colonoscopy if clinically indicated. 3. Small cortical region of hypoenhancement in the left kidney without a di screte mass visualized. The findings are nonspecific and may represent sequelae of infection, trauma, or infarct. No perinephric fat stranding or fluid collections. Reviewed by: Oumar Quinones MD on 10/08/2020 1:44 PM PST Approved by: Oumar Quinones MD on He takes aspirin and occasional ibuprofen. Last colonoscopy over 10 years ago plan egd and colonoscopy, likely tuesday 10/10. bowel prep tomorrow
--- NOTE | 2020-10-08 17:32 | HISTORY & PHYSICAL EXAMINATION ---
PMH/PSH - Past Medical History Cardiovascular: positive: Hypertension, High cholesterol Respiratory: positive: None Endocrine/Autoimmune: positive: None GI: positive: None : positive: Benign prostate hypertrophy, Retention, Nocturia HEENT: positive: Chronic vision loss, Dental implants Psych: positive: None Musculoskeletal: positive: None Derm: positive: None MRSA Hx?: No - Past Surgical History General: positive: Colonoscopy HEENT: positive: Tonsil/Adenoidectomy Social & Family Hx - Social History Does the pt smoke?: No Smoking Status: Never smoker Meds/Allgy - Home Medications Home Medications: Ambulatory Orders Medication Instructions Recorded Confirmed Aspirin 81 mg PO DAILY 09/01/16 10/08/20 Simvastatin 20 mg PO DAILY 09/01/16 10/23/16 Amlodipine Besylate [Norvasc] 10/08/20 - Allergies Allergies/Adverse Reactions: Allergies Allergy/AdvReac Type Severity Reaction Status Date / Time amoxicillin Allergy Rash Verified 09/01/16 13:52 Exam - Vital Signs Vital Signs: Vital Signs x48h Temp Pulse Pulse Resp BP BP Pulse Ox 10/08/20 16:00 36.5 C 68 18 149/90 H 100 10/08/20 15:30 36.2 C L 72 18 140/87 H 99 10/08/20 14:50 70 18 176/95 H 99 10/08/20 13:35 72 18 158/97 H 99 10/08/20 12:24 36.8 C 85 16 185/104 H 99 Results - Lab Results Fish Bones: 10/08/20 12:37 10/08/20 12:37 Other Lab Results: Lab Results x24hrs 10/08/20 10/08/20 10/08/20 Range/Units 15:45 13:41 13:14 WBC (4.8-10.8) x10^3/uL RBC (4.70-6.10) 10^6/uL Hgb (14.0-18.0) g/dL Hct (42.0-52.0) % MCV (80.0-94.0) fL MCH (27.0-31.0) pg MCHC (32.0-36.0) g/dL RDW (12.0-15.0) % Plt Count (130-450) 10^3/uL MPV (7.4-11.4) fL Neut # (Auto) (1.5-6.6) 10^3/uL Lymph # (Auto) (1.5-3.5) 10^3/uL [place] # (Auto) (0.0-1.0) 10^3/uL Eos # (Auto) (0.0-0.7) 10^3/uL Baso # (Auto) (0.0-0.1) 10^3/uL Absolute Nucleated RBC x10^3/uL Nucleated RBC % /100WBC PT (9.9-12.6) secs INR (0.8-1.2) Sodium (135-145) mmol/L Potassium (3.5-5.0) mmol/L Chloride (101-111) mmol/L Carbon Dioxide (21-32) mmol/L Anion Gap (6-13) BUN (6-20) mg/dL Creatinine (0.6-1.2) mg/dL Estimated GFR (MDRD) (>89) Glucose (70-100) mg/dL Calcium (8.5-10.3) mg/dL Total Bilirubin (0.2-1.0) mg/dL AST (10-42) IU/L ALT (10-60) IU/L Alkaline Phosphatase (42-121) IU/L Total Protein (6.7-8.2) g/dL Albumin (3.2-5.5) g/dL Globulin (2.1-4.2) g/dL Albumin/Globulin Ratio (1.0-2.2) Lipase (22-51) U/L Urine Color YELLOW Urine Clarity CLEAR (CLEAR) Urine pH 6.0 (5.0-7.5) PH Ur Specific [place] 1.025 (1.002-1.030) Urine Protein NEGATIVE (NEGATIVE) mg/dL Urine Glucose (UA) NEGATIVE (NEGATIVE) mg/dL Urine Ketones NEGATIVE (NEGATIVE) mg/dL Urine Occult Blood NEGATIVE (NEGATIVE) Urine Nitrite NEGATIVE (NEGATIVE) Urine Bilirubin NEGATIVE (NEGATIVE) Urine Urobilinogen 0.2 (NORMAL) (NORMAL) E.U./dL Ur Leukocyte Esterase NEGATIVE (NEGATIVE) Ur Microscopic Review NOT INDICATED Urine Culture Comments NOT INDICATED Nasal Adenovirus (PCR) NOT DETECTED Nasal B. parapertussis DNA (PCR) NOT DETECTED Nasal Coronavir 229E PCR NOT DETECTED Nasal Coronavir HKU1 PCR NOT DETECTED Nasal Coronavir NL63 PCR NOT DETECTED Nasal Coronavir OC43 PCR NOT DETECTED Nasal Enterovir/Rhinovir PCR NOT DETECTED Nasal Influenza B PCR NOT DETECTED Nasal Influenza A PCR NOT DETECTED Nasal Parainfluen 1 PCR NOT DETECTED Nasal Parainfluen 2 PCR NOT DETECTED Nasal Parainfluen 3 PCR NOT DETECTED Nasal Parainfluen 4 PCR NOT DETECTED Nasal RSV (PCR) NOT DETECTED Nasal B.pertussis DNA PCR NOT DETECTED Nasal C.pneumoniae (PCR) NOT DETECTED [place] Human Metapneumo PCR NOT DETECTED Nasal M.pneumoniae (PCR) NOT DETECTED Nasal SARS-CoV-2 (PCR) NOT DETECTED Blood Type Blood Type Recheck A POSITIVE Antibody Screen 10/08/20 10/08/20 10/08/20 Range/Units 12:55 12:37 12:37 WBC (4.8-10.8) x10^3/uL RBC (4.70-6.10) 10^6/uL Hgb (14.0-18.0) g/dL Hct (42.0-52.0) % MCV (80.0-94.0) fL MCH (27.0-31.0) pg MCHC (32.0-36.0) g/dL RDW (12.0-15.0) % Plt Count (130-450) 10^3/uL MPV (7.4-11.4) fL Neut # (Auto) (1.5-6.6) 10^3/uL Lymph # (Auto) (1.5-3.5) 10^3/uL [place] # (Auto) (0.0-1.0) 10^3/uL Eos # (Auto) (0.0-0.7) 10^3/uL Baso # (Auto) (0.0-0.1) 10^3/uL Absolute Nucleated RBC x10^3/uL Nucleated RBC % /100WBC PT 14.1 H (9.9-12.6) secs INR 1.3 H (0.8-1.2) Sodium 143 (135-145) mmol/L Potassium 4.3 (3.5-5.0) mmol/L Chloride 101 (101-111) mmol/L Carbon Dioxide 24 (21-32) mmol/L Anion Gap 18.0 H (6-13) BUN 21 H (6-20) mg/dL Creatinine 1.2 (0.6-1.2) mg/dL Estimated GFR (MDRD) 59 L (>89) Glucose 109 H (70-100) mg/dL Calcium 10.1 (8.5-10.3) mg/dL Total Bilirubin 0.6 (0.2-1.0) mg/dL AST 26 (10-42) IU/L ALT 22 (10-60) IU/L Alkaline Phosphatase 64 (42-121) IU/L Total Protein 8.0 (6.7-8.2) g/dL Albumin 4.8 (3.2-5.5) g/dL Globulin 3.2 (2.1-4.2) g/dL Albumin/Globulin Ratio 1.5 (1.0-2.2) Lipase 29 (22-51) U/L Urine Color Urine Clarity (CLEAR) Urine pH (5.0-7.5) PH Ur Specific [place] (1.002-1.030) Urine Protein (NEGATIVE) mg/dL Urine Glucose (UA) (NEGATIVE) mg/dL Urine Ketones (NEGATIVE) mg/dL Urine Occult Blood (NEGATIVE) Urine Nitrite (NEGATIVE) Urine Bilirubin (NEGATIVE) Urine Urobilinogen (NORMAL) E.U./dL Ur Leukocyte Esterase (NEGATIVE) Ur Microscopic Review Urine Culture Comments Nasal Adenovirus (PCR) Nasal B. parapertussis DNA (PCR) Nasal Coronavir 229E PCR Nasal Coronavir HKU1 PCR Nasal Coronavir NL63 PCR Nasal Coronavir OC43 PCR Nasal Enterovir/Rhinovir PCR Nasal Influenza B PCR Nasal Influenza A PCR Nasal Parainfluen 1 PCR Nasal Parainfluen 2 PCR Nasal Parainfluen 3 PCR Nasal Parainfluen 4 PCR Nasal RSV (PCR) Nasal B.pertussis DNA PCR Nasal C.pneumoniae (PCR) [place] Human Metapneumo PCR Nasal M.pneumoniae (PCR) Nasal SARS-CoV-2 (PCR) Blood Type A POSITIVE Blood Type Recheck Antibody Screen NEGATIVE 10/08/20 Range/Units 12:37 WBC 5.9 (4.8-10.8) x10^3/uL RBC 4.99 (4.70-6.10) 10^6/uL Hgb 15.5 (14.0-18.0) g/dL Hct 46.6 (42.0-52.0) % MCV 93.4 (80.0-94.0) fL MCH 31.1 H (27.0-31.0) pg MCHC 33.3 (32.0-36.0) g/dL RDW 13.2 (12.0-15.0) % Plt Count 256 (130-450) 10^3/uL MPV 10.1 (7.4-11.4) fL Neut # (Auto) 4.0 (1.5-6.6) 10^3/uL Lymph # (Auto) 1.3 L (1.5-3.5) 10^3/uL [place] # (Auto) 0.4 (0.0-1.0) 10^3/uL Eos # (Auto) 0.0 (0.0-0.7) 10^3/uL Baso # (Auto) 0.1 (0.0-0.1) 10^3/uL Absolute Nucleated RBC 0.00 x10^3/uL Nucleated RBC % 0.0 /100WBC PT (9.9-12.6) secs INR (0.8-1.2) Sodium (135-145) mmol/L Potassium (3.5-5.0) mmol/L Chloride (101-111) mmol/L Carbon Dioxide (21-32) mmol/L Anion Gap (6-13) BUN (6-20) mg/dL Creatinine (0.6-1.2) mg/dL Estimated GFR (MDRD) (>89) Glucose (70-100) mg/dL Calcium (8.5-10.3) mg/dL Total Bilirubin (0.2-1.0) mg/dL AST (10-42) IU/L ALT (10-60) IU/L Alkaline Phosphatase (42-121) IU/L Total Protein (6.7-8.2) g/dL Albumin (3.2-5.5) g/dL Globulin (2.1-4.2) g/dL Albumin/Globulin Ratio (1.0-2.2) Lipase (22-51) U/L Urine Color Urine Clarity (CLEAR) Urine pH (5.0-7.5) PH Ur Specific [place] (1.002-1.030) Urine Protein (NEGATIVE) mg/dL Urine Glucose (UA) (NEGATIVE) mg/dL Urine Ketones (NEGATIVE) mg/dL Urine Occult Blood (NEGATIVE) Urine Nitrite (NEGATIVE) Urine Bilirubin (NEGATIVE) Urine Urobilinogen (NORMAL) E.U./dL Ur Leukocyte Esterase (NEGATIVE) Ur Microscopic Review Urine Culture Comments Nasal Adenovirus (PCR) Nasal B. parapertussis DNA (PCR) Nasal Coronavir 229E PCR Nasal Coronavir HKU1 PCR Nasal Coronavir NL63 PCR Nasal Coronavir OC43 PCR Nasal Enterovir/Rhinovir PCR Nasal Influenza B PCR Nasal Influenza A PCR Nasal Parainfluen 1 PCR Nasal Parainfluen 2 PCR Nasal Parainfluen 3 PCR Nasal Parainfluen 4 PCR Nasal RSV (PCR) Nasal B.pertussis DNA PCR Nasal C.pneumoniae (PCR) [place] Human Metapneumo PCR Nasal M.pneumoniae (PCR) Nasal SARS-CoV-2 (PCR) Blood Type Blood Type Recheck Antibody Screen
[2020-10-08] MEDS: SODIUM/POTASSIUM/MAG SULFATES 354 ML PREP KIT PO SCH (18:27)
--- NOTE | 2020-10-08 18:46 | PHARMACY PROGRESS NOTE ---
- Best Possible Medication History Admit Date and Time: 10/08/20 1411 Processed by: Pharmacy Medication History completed: Yes Patient Interview: Completed Secondary Source(s): Physician records, Pharmacy records, Insurance records (PATIENT INTERVIEWED BY PHARMACY. PATIENT ABLE TO CONFIRM HOME MEDICATIONS ) As the person ultimately responsible for medication therapy, providers are able to order a medication from an existing home medication list in [facility] via the "Reconcile Routine" prior to Confirmation of that medication by technical sales support specialist. Such practice is discouraged except when the physician, in their clinical judgment, deems that a medical need exists for a medication without regard to previous use.
[2020-10-08 21:21] LABS: HGB - HEMOGLOBIN 14.2 g/dL (14.0-18.0)
[2020-10-08 21:29] LABS: INR 1.4 (0.8-1.2); PT - PROTHROMBIN TIME 15.2 secs (9.9-12.6)
[2020-10-09] MEDS: SODIUM CHLORIDE FLUSH 0.9% 10 ML SYRINGE IVP SCH ×2 (01:25→09:29)
[2020-10-09] MEDS: SODIUM CHLORIDE 0.9% 1,000 ML IV SCH ×2 (02:15→09:28)
[2020-10-09 04:54] LABS: HGB - HEMOGLOBIN 11.9 g/dL (14.0-18.0); MEAN CORPUSCULAR HEMOGLOBIN 30.7 pg (27.0-31.0); MEAN CORPUSCULAR HGB CONC 32.7 g/dL (32.0-36.0); MEAN CORPUSCULAR VOLUME 94.1 fL (80.0-94.0); RED BLOOD COUNT 3.87 10^6/uL (4.70-6.10); RED CELL DISTRIBUTION WIDTH 13.4 % (12.0-15.0); WHITE BLOOD COUNT 5.5 x10^3/uL (4.8-10.8)
[2020-10-09] MEDS: SODIUM/POTASSIUM/MAG SULFATES 354 ML PREP KIT PO SCH (05:54)
--- NOTE | 2020-10-09 07:48 | ANESTHESIA ---
Pre-Anesthesia VS, & Labs - Diagnosis GI Bleed - Procedure Colonoscopy and EGD Vital Signs: Temp Pulse Resp BP Pulse Ox 36.5 C 72 16 145/83 H 97 10/09/20 04:55 10/09/20 04:55 10/09/20 04:55 10/09/20 04:55 10/09/20 04:55 Height: 5 ft 9 in Weight (kg): 77.111 kg Body Mass Index: 25.1 BMI Classification: Overweight - NPO >8 hours - Lab Results Current Lab Results: Laboratory Tests 10/09/20 04:40: WBC 5.5, RBC 3.87 L, Hgb 11.9 L, Hct 36.4 L, MCV 94.1 H, MCH 30.7, MCHC 32.7, RDW 13.4, Plt Count 206, MPV 10.0 10/09/20 04:40: TSH 3.03 10/08/20 21:15: PT 15.2 H, INR 1.4 H 10/08/20 21:15: Hgb 14.2, Hct 43.0 10/08/20 13:41: Blood Type Recheck A POSITIVE 10/08/20 12:55: Blood Type A POSITIVE, Antibody Screen NEGATIVE 10/08/20 12:37: PT 14.1 H, INR 1.3 H 10/08/20 12:37: Sodium 143, Potassium 4.3, Chloride 101, Carbon Dioxide 24, Anion Gap 18.0 H, BUN 21 H, Creatinine 1.2, Estimated GFR (MDRD) 59 L, Glucose 109 H, Calcium 10.1, Total Bilirubin 0.6, AST 26, ALT 22, Alkaline Phosphatase 64, Total Protein 8.0, Albumin 4.8, Globulin 3.2, Albumin/Globulin Ratio 1.5, Lipase 29 10/08/20 12:37: WBC 5.9, RBC 4.99, Hgb 15.5, Hct 46.6, MCV 93.4, MCH 31.1 H, MCHC 33.3, RDW 13.2, Plt Count 256, MPV 10.1, Neut # (Auto) 4.0, Lymph # (Auto) 1.3 L, [place] # (Auto) 0.4, Eos # (Auto) 0.0, Baso # (Auto) 0.1, Absolute Nucleated RBC 0.00, Nucleated RBC % 0.0 Fish Bones: 10/09/20 04:40 10/08/20 12:37 Home Medications and Allergies Home Medications: Ambulatory Orders Amlodipine Besylate [Norvasc] 2.5 mg PO DAILY 10/08/20 Active Medications Sodium Chloride (Normal Saline 0.9%) 1,000 mls @ 100 mls/hr IV .Q10H [facility] Last Infusion: 10/09/20 05:54 Dose: 100 mls/hr Documented by: Sodium Chloride (Sodium Chloride Flush 0.9% 10 Ml Syringe) 10 ml IVP PRN PRN PRN Reason: NEEDED PER PROVIDER ORDERS Sodium Chloride (Sodium Chloride Flush 0.9% 10 Ml Syringe) 10 ml IVP 0100,[id number],1700 [facility] Last Admin: 10/09/20 01:25 Dose: Not Given Documented by: Aspirin 81 mg PO DAILY 09/01/16 Simvastatin 20 mg PO DAILY 09/01/16 Amlodipine Besylate [Norvasc] 2.5 mg PO DAILY 10/08/20 Allergies/Adverse Reactions: Allergies Allergy/AdvReac Type Severity Reaction Status Date / Time amoxicillin Allergy Rash Verified 09/01/16 13:52 Anes History & Medical History - Anesthetic History Anesthesia Complications: reports: No previous complications - Medical History Cardiovascular: reports: Hypertension, High cholesterol Pulmonary: reports: None Gastrointestinal: reports: None Urinary: reports: Benign prostate hypertrophy, Retention, Nocturia Neuro: reports: None Musculoskeletal: reports: None Endocrine/Autoimmune: reports: None Blood Disorders: reports: None Skin: reports: None Smoking Status: Former smoker Psychosocial: reports: No issues indicated History of Cancer?: No - Surgical History General: Colonoscopy Eyes Ears Nose Throat (EENT): Tonsil/Adenoidectomy Exam General: Alert, Oriented x3, Cooperative, No acute distress Dental: WNL Mouth Openin Fingerbreadth Neck Mobility: Normal Mallampati classification: II Thyromental Distance: 4-6 cm Mental/Cognitive Status: Alert/Oriented X3, Normal for patient Plan Anesthesia Type: MAC Consent for Procedure(s) Verified and Reviewed: Yes Code Status: Attempt Resuscitation ASA classification: 2-Mild systemic disease Is this case an emergency?: No
--- NOTE | 2020-10-09 08:01 | PROVIDER PROGRESS NOTE ---
Assessment/Plan - Current Meds Current Meds: Current Medications Generic Name Dose Route Start Last Admin Trade Name Aiden PRN Reason Stop Dose Admin Sodium Chloride 1,000 mls @ 100 mls/hr 10/08/20 15:00 10/09/20 05:54 Normal Saline 0.9% IV 100 mls/hr .Q10H MARK Infusion Sodium Chloride 10 ml 10/08/20 17:00 10/09/20 01:25 Sodium Chloride Flush 0.9% 10 Ml Syringe IVP Not Given 0100,0900,1700 MARK - Lab Result Fish Bone Diagrams: 10/09/20 04:40 10/08/20 12:37 - Additional Planning My Orders: My Active Orders 10/09/20 08:00 BMP - BASIC METABOLIC PANEL [CHEM] Stat Objective Vital Signs: Vital Signs - 24 hr 10/08/20 10/08/20 10/08/20 12:24 13:35 14:50 Temperature 36.8 C Heart Rate 85 72 70 Heart Rate [ Brachial] Respiratory 16 18 18 Rate Blood Pressure 185/104 H 158/97 H 176/95 H Blood Pressure [Left Brachial artery] O2 Saturation 99 99 99 10/08/20 10/08/20 10/08/20 15:30 16:00 20:46 Temperature 36.2 C L 36.5 C 36.9 C Heart Rate 72 Heart Rate [ 68 77 Brachial] Respiratory 18 18 18 Rate Blood Pressure 140/87 H Blood Pressure 149/90 H 145/79 H [Left Brachial artery] O2 Saturation 99 100 98 10/09/20 10/09/20 01:00 04:55 Temperature 36.5 C 36.5 C Heart Rate Heart Rate [ 74 72 Brachial] Respiratory 18 16 Rate Blood Pressure Blood Pressure 139/82 H 145/83 H [Left Brachial artery] O2 Saturation 97 97 Oxygen O2 Source Room air I&O (Last 24 Hrs): Intake and Output Totals x24h 10/07/20 10/08/20 10/09/20 23:59 23:59 23:59 Intake Total 2500 1365 Output Total 1350 1515 Balance 1150 -150 - Results Results: Laboratory Results WBC 5.5 x10^3/uL (4.8-10.8) 10/09/20 04:40 RBC 3.87 10^6/uL (4.70-6.10) L 10/09/20 04:40 Hgb 11.9 g/dL (14.0-18.0) L 10/09/20 04:40 Hct 36.4 % (42.0-52.0) L 10/09/20 04:40 MCV 94.1 fL (80.0-94.0) H 10/09/20 04:40 MCH 30.7 pg (27.0-31.0) 10/09/20 04:40 MCHC 32.7 g/dL (32.0-36.0) 10/09/20 04:40 RDW 13.4 % (12.0-15.0) 10/09/20 04:40 Plt Count 206 10^3/uL (130-450) 10/09/20 04:40 MPV 10.0 fL (7.4-11.4) 10/09/20 04:40 Neut # (Auto) 4.0 10^3/uL (1.5-6.6) 10/08/20 12:37 Lymph # (Auto) 1.3 10^3/uL (1.5-3.5) L 10/08/20 12:37 [place] # (Auto) 0.4 10^3/uL (0.0-1.0) 10/08/20 12:37 Eos # (Auto) 0.0 10^3/uL (0.0-0.7) 10/08/20 12:37 Baso # (Auto) 0.1 10^3/uL (0.0-0.1) 10/08/20 12:37 Absolute Nucleated RBC 0.00 x10^3/uL 10/08/20 12:37 Nucleated RBC % 0.0 /100WBC 10/08/20 12:37 PT 15.2 secs (9.9-12.6) H 10/08/20 21:15 INR 1.4 (0.8-1.2) H 10/08/20 21:15 Sodium 143 mmol/L (135-145) 10/08/20 12:37 Potassium 4.3 mmol/L (3.5-5.0) 10/08/20 12:37 Chloride 101 mmol/L (101-111) 10/08/20 12:37 Carbon Dioxide 24 mmol/L (21-32) 10/08/20 12:37 Anion Gap 18.0 (6-13) H 10/08/20 12:37 BUN 21 mg/dL (6-20) H 10/08/20 12:37 Creatinine 1.2 mg/dL (0.6-1.2) 10/08/20 12:37 Estimated GFR (MDRD) 59 (>89) L 10/08/20 12:37 Glucose 109 mg/dL (70-100) H 10/08/20 12:37 Calcium 10.1 mg/dL (8.5-10.3) 10/08/20 12:37 Total Bilirubin 0.6 mg/dL (0.2-1.0) 10/08/20 12:37 AST 26 IU/L (10-42) 10/08/20 12:37 ALT 22 IU/L (10-60) 10/08/20 12:37 Alkaline Phosphatase 64 IU/L (42-121) 10/08/20 12:37 Total Protein 8.0 g/dL (6.7-8.2) 10/08/20 12:37 Albumin 4.8 g/dL (3.2-5.5) 10/08/20 12:37 Globulin 3.2 g/dL (2.1-4.2) 10/08/20 12:37 Albumin/Globulin Ratio 1.5 (1.0-2.2) 10/08/20 12:37 Lipase 29 U/L (22-51) 10/08/20 12:37 TSH 3.03 uIU/mL (0.34-5.60) 10/09/20 04:40 Urine Color YELLOW 10/08/20 13:14 Urine Clarity CLEAR (CLEAR) 10/08/20 13:14 Urine pH 6.0 PH (5.0-7.5) 10/08/20 13:14 Ur Specific [place] 1.025 (1.002-1.030) 10/08/20 13:14 Urine Protein NEGATIVE mg/dL (NEGATIVE) 10/08/20 13:14 Urine Glucose (UA) NEGATIVE mg/dL (NEGATIVE) 10/08/20 13:14 Urine Ketones NEGATIVE mg/dL (NEGATIVE) 10/08/20 13:14 Urine Occult Blood NEGATIVE (NEGATIVE) 10/08/20 13:14 Urine Nitrite NEGATIVE (NEGATIVE) 10/08/20 13:14 Urine Bilirubin NEGATIVE (NEGATIVE) 10/08/20 13:14 Urine Urobilinogen 0.2 (NORMAL) E.U./dL (NORMAL) 10/08/20 13:14 Ur Leukocyte Esterase NEGATIVE (NEGATIVE) 10/08/20 13:14 Ur Microscopic Review NOT INDICATED 10/08/20 13:14 Urine Culture Comments NOT INDICATED 10/08/20 13:14 Nasal Adenovirus (PCR) NOT DETECTED 10/08/20 15:45 Nasal B. parapertussis DNA (PCR) NOT DETECTED 10/08/20 15:45 Nasal Coronavir 229E PCR NOT DETECTED 10/08/20 15:45 Nasal Coronavir HKU1 PCR NOT DETECTED 10/08/20 15:45 Nasal Coronavir NL63 PCR NOT DETECTED 10/08/20 15:45 Nasal Coronavir OC43 PCR NOT DETECTED 10/08/20 15:45 Nasal Enterovir/Rhinovir PCR NOT DETECTED 10/08/20 15:45 Nasal Influenza B PCR NOT DETECTED 10/08/20 15:45 Nasal Influenza A PCR NOT DETECTED 10/08/20 15:45 Nasal Parainfluen 1 PCR NOT DETECTED 10/08/20 15:45 Nasal Parainfluen 2 PCR NOT DETECTED 10/08/20 15:45 Nasal Parainfluen 3 PCR NOT DETECTED 10/08/20 15:45 Nasal Parainfluen 4 PCR NOT DETECTED 10/08/20 15:45 Nasal RSV (PCR) NOT DETECTED 10/08/20 15:45 Nasal B.pertussis DNA PCR NOT DETECTED 10/08/20 15:45 Nasal C.pneumoniae (PCR) NOT DETECTED 10/08/20 15:45 [place] Human Metapneumo PCR NOT DETECTED 10/08/20 15:45 Nasal M.pneumoniae (PCR) NOT DETECTED 10/08/20 15:45 Nasal SARS-CoV-2 (PCR) NOT DETECTED 10/08/20 15:45 Blood Type A POSITIVE 10/08/20 12:55 Blood Type Recheck A POSITIVE 10/08/20 13:41 Antibody Screen NEGATIVE 10/08/20 12:55 - Procedures Procedures: Procedures SUPPLEMENT R INGUINAL REGION W SYNTH SUB, PERC ENDO (10/23/16)
[2020-10-09] MEDS ORDERED: PROPOFOL 500 MG/50 ML 500 MG/50 ML VIAL ONE (08:08)
[2020-10-09] MEDS ORDERED: fentaNYL 100 MCG/2 ML VIAL ONE (08:12)
[2020-10-09 08:35] LABS: CALCIUM 8.9 mg/dL (8.5-10.3); CREATININE 1.1 mg/dL (0.6-1.2)
--- NOTE | 2020-10-09 10:35 | ANESTHESIA POST OP EVALUATION ---
Anesthesia Post Eval - Post Anesthesia Eval Vitals: Last Vital Signs Temp 36.4 C L 10/09/20 09:30 Pulse 60 10/09/20 09:45 Resp 16 10/09/20 09:45 BP 136/80 H 10/09/20 09:45 Pulse Ox 97 10/09/20 09:45 CV Function Including HR & BP: positive: Stable Pain Control: positive: Satisfactory Nausea & Vomiting: positive: Negative Mental Status: positive: Baseline Respiratory Status: Airway Patent Hydration Status: Satisfactory Anesthesia Complications: positive: None
--- NOTE | 2020-10-09 11:44 | DISCHARGE SUMMARY ---
Discharge Summary Admit Date: 10/08/20 Discharge Date: 10/09/20 Discharging Provider: Silvia Byrdtparish Code Status: Attempt Resuscitation Condition at Discharge: Good Discharge Disposition: 01 Home, Self Care - DIAGNOSES Admission Diagnoses: GI bleed Atrial fibrillation and flutter Osteoarthritis Hypertension Discharge Diagnoses with Status of Each Condition: GI bleed: Resolved suspected to be secondary to diverticular bleed. No intervention was warranted Diverticulosis: Chronic patient advised to increase fiber in his diet, keep hydrated and active. Atrial fibrillation and flutter: Incidental finding. Heart rate is within normal range despite no rate controlling medication. [id number] score is 3. Patient will need to follow-up with primary care physician for further management Osteoarthritis: Chronic Hypertension: Chronic - HPI History of Present Illness: Mr Guerrero is a 75 yo male who presented to the ED after reports of black stool starting last evening , with some bright red blood in bowl, which happened again this morning. No corresponding near syncope, chest pain, diaphoresis, palpitations when upright. No hx GI Bleed. He does take daily ASA 81mg for "prevention; and takes 1-2 200 mg Ibuprofens each morning for "the various aches and pains that come with age 75". Not on anticoagulation. Denies epigastric pain, no hematemeis or other emesis. No heavy ETOH use. Non smoker.non drinker (last 35+ yrs ago) In the ED he was hemodynamically stable (actually hypertensive), and did have witnessed BRBPR in ED. (also seen by me, red blood in toilet bowl and small bits of black stool; no melena when seen by me). NO clots Pt denies hx of hemorrhoids. no significant BUN increase CT abd done in Ed notable for extensive diverticulosis/ no itis. Had colonoscopy in 2008, just diverticulosis found. Incidentally in the ED he was found to be in rate controlled atrial fibrillation/atrial flutter. - CONSULTS | PROCEDURES Consultations: Alee Guevara with general surgery - HOSPITAL COURSE Hospital Course: Palpitation patient's hemoglobin was 15.4 however this was suspected to be hemoconcentration. The patient was made n.p.o. and received IV hydration with normal saline.The following day his hemoglobin was 11.4. The patient had no symptoms of dyspnea or chest pain. He underwent a Suprep and was taken to the OR for a colonoscopy and EGD by Dr. Alee Mccann on 10/09/20. The colonoscopy showed severe diverticulosis in the sigmoid colon. There was moderate diverticulosis in the descending and transverse colon. Severe neck reticulosis with false passages. No gross purulence or active bleeding or clots were appreciated. Enlarged internal hemorrhoids but no hemorrhoidal bleeding. Multiple possible sources of melena but no active bleeding at the time. Retroflexed view revealed internal hemorrhoids The EGD showed a duodenal mucosa with no abnormalities in the bulb and second portion of the duodenum. Cold forcep biopsies were taken in the bulb and second portion of the duodenum. There was erythematous gastritis in the cardia and prepyloric region of the stomach multiple biopsies were performed. Polypectomy was performed. The GE junction 34 cm from incisors. Abnormal mucosa was found in the mid esophagus. The diaphragmatic impression 37 cm from incisors. 3 cm hiatal hernia. Distal esophagus with grossly normal mucosa. Recommendations was to discharge the patient home and to resume diet. The patient was placed on Protonix 40 mg p.o. twice daily The patient was also advised to follow-up with a primary care physician for further work-up of his atrial fibrillation. This was an incidental finding upon presentation to the ED. Patient was rate controlled despite not being on any rate controlling medication. He had a Solomon vas score of 3 however given his presentation with GI bleed an anticoagulant was contraindicated at the time. This may be resumed in the near future by his primary care physician. His primary care physician is expected to do an echocardiogram at some point as well. - ALLERGIES Allergies/Adverse Reactions: Allergies Allergy/AdvReac Type Severity Reaction Status Date / Time amoxicillin Allergy Rash Verified 09/01/16 13:52 - MEDICATIONS Home Medications: Ambulatory Orders Medication Instructions Recorded Confirmed Aspirin 81 mg PO DAILY 09/01/16 10/08/20 Simvastatin 20 mg PO DAILY 09/01/16 10/08/20 Amlodipine Besylate [Norvasc] 2.5 mg PO DAILY 10/08/20 10/08/20 Pantoprazole [Protonix] 40 mg PO BID 30 Days #60 10/09/20 - PHYSICAL EXAM AT DISCHARGE General Appearance: positive: No acute distress, Alert Eyes Bilateral: positive: PERRL, EOMI ENT: positive: No signs of dehydration Neck: positive: No JVD, Trachea midline Respiratory: positive: Chest non-tender, No respiratory distress, Breath sounds nml. negative: Wheezes, Rales, Rhonchi Cardiovascular: positive: No murmur, Irregularly irregular Abdomen: positive: Non-tender, No organomegaly, Nml bowel sounds, No distention. negative: Guarding, Rebound Back: positive: Nml inspection Skin: positive: Color nml, Warm, Dry Extremities: positive: Non-tender, Full ROM, Nml appearance, No pedal edema Neurologic/Psychiatric: positive: Oriented x3, CN's nml (2-12), Motor nml, Mood/affect nml - LABS Result Diagrams: 10/09/20 04:40 10/09/20 08:15 - DIAGNOSTIC IMAGING Diagnostic Imaging Results Comments: CT abdomen/pelvis done on 10/08/2020 was unremarkable. - FOLLOW UP Follow Up: Follow-up with primary care physician as needed - TIME SPENT Time Spent in Discharge (Minutes): 25
--- NOTE | 2020-10-09 11:51 | Discharge Plan ---
Discharge Plan Problem Reviewed?: Yes Disposition: 01 Home, Self Care Condition: Good Prescriptions: Pantoprazole [Protonix] 40 mg PO BID 30 Days #60 Diet: Regular Activity Restrictions: Activity as Tolerated Driving Restrictions: Yes (Dont operated motorized vehicles for 10/09/20) Health Concerns: You were admitted on 10/08/20 with melena and bright red blood per rectum. You received IV hydration and underwent a bowel prep while your hemoglobin was monitored. You underwent an EGD and a colonoscopy on 10/09/20. On the colonoscopy it was noted that you have extensive diverticulosis but no diverticulitis. There was no active source of bleeding noted. Recommendations was to increase fiber in your diet since this will minimize chances of constipation which is a contributing factor to diverticular bleed. You have also been advised to keep active and keep hydrated. While several potential sources for the melena was noted on EGD, there was no active bleeding. You were noted to have some gastritis. Recommendations was for you to be on a proton pump inhibitor. As a result you will be ordered Protonix 40 mg p.o. twice daily upon discharge. You have also been advised to avoid using NSAIDs. Given that you received some anesthetics for the colonoscopy/EGD you have been advised to be in the presence of an adult throughout today. You also have been advised to avoid operating any motorized vehicles. You expressed understanding to this and was agreeable to the plan. You will be discharged later this afternoon after having a regular diet. Plan of Treatment: You were admitted on 10/08/20 with melena and bright red blood per rectum. You received IV hydration and underwent a bowel prep while your hemoglobin was monitored. You underwent an EGD and a colonoscopy on 10/09/20. On the colonoscopy it was noted that you have extensive diverticulosis but no diverticulitis. There was no active source of bleeding noted. Recommendations was to increase fiber in your diet since this will minimize chances of constipation which is a contributing factor to diverticular bleed. You have also been advised to keep active and keep hydrated. While several potential sources for the melena was noted on EGD, there was no active bleeding. You were noted to have some gastritis. Recommendations was for you to be on a proton pump inhibitor. As a result you will be ordered Protonix 40 mg p.o. twice daily upon discharge. You have also been advised to avoid using NSAIDs. Given that you received some anesthetics for the colonoscopy/EGD you have been advised to be in the presence of an adult throughout today. You also have been advised to avoid operating any motorized vehicles. You expressed understanding to this and was agreeable to the plan. You will be discharged later this afternoon after having a regular diet. Care Goals: You were admitted on 10/08/20 with melena and bright red blood per rectum. You received IV hydration and underwent a bowel prep while your hemoglobin was monitored. You underwent an EGD and a colonoscopy on 10/09/20. On the colonoscopy it was noted that you have extensive diverticulosis but no diverticulitis. There was no active source of bleeding noted. Recommendations was to increase fiber in your diet since this will minimize chances of constipation which is a contributing factor to diverticular bleed. You have also been advised to keep active and keep hydrated. While several potential sources for the melena was noted on EGD, there was no active bleeding. You were noted to have some gastritis. Recommendations was for you to be on a proton pump inhibitor. As a result you will be ordered Protonix 40 mg p.o. twice daily upon discharge. You have also been advised to avoid using NSAIDs. Given that you received some anesthetics for the colonoscopy/EGD you have been advised to be in the presence of an adult throughout today. You also have been advised to avoid operating any motorized vehicles. You expressed understanding to this and was agreeable to the plan. You will be discharged later this afternoon after having a regular diet. Assessment: You were admitted on 10/08/20 with melena and bright red blood per rectum. You received IV hydration and underwent a bowel prep while your hemoglobin was monitored. You underwent an EGD and a colonoscopy on 10/09/20. On the colonoscopy it was noted that you have extensive diverticulosis but no diverticulitis. There was no active source of bleeding noted. Recommendations was to increase fiber in your diet since this will minimize chances of constipation which is a contributing factor to diverticular bleed. You have also been advised to keep active and keep hydrated. While several potential sources for the melena was noted on EGD, there was no active bleeding. You were noted to have some gastritis. Recommendations was for you to be on a proton pump inhibitor. As a result you will be ordered Protonix 40 mg p.o. twice daily upon discharge. You have also been advised to avoid using NSAIDs. Given that you received some anesthetics for the colonoscopy/EGD you have been advised to be in the presence of an adult throughout today. You also have been advised to avoid operating any motorized vehicles. You expressed understanding to this and was agreeable to the plan. You will be discharged later this afternoon after having a regular diet. Additional Instructions or Follow Up instructions: Primary care physician as needed No Smoking: If you smoke, Please STOP! Call for help.
[2020-10-09 12:18] VITALS: BP 137/92
[2020-10-09] MEDS ORDERED: PANTOPRAZOLE 40 MG TABLET PO SCH (13:00)
== END 2020-10-09 12:43 | disposition home or self-care (01) ==
LOC: ED 12:11 → MS2 14:11
PROVIDERS: ADMIT Nurse Practitioner; ATTEND Internal Medicine
PROC: 0DB68ZX Excision of Stomach, Via Natural or Artificial Opening Endoscopic, Diagnostic (ICD-10-PCS; principal; 2020-10-08)
DX: K29.61 Other gastritis with bleeding (principal); B96.81 Helicobacter pylori [H. pylori] as the cause of diseases classified elsewhere; K22.70 Barrett's esophagus without dysplasia; K57.31 Diverticulosis of large intestine without perforation or abscess with bleeding; I48.91 Unspecified atrial fibrillation; I48.92 Unspecified atrial flutter; I10 Essential (primary) hypertension; E78.5 Hyperlipidemia, unspecified; K64.8 Other hemorrhoids; M19.90 Unspecified osteoarthritis, unspecified site; N40.1 Benign prostatic hyperplasia with lower urinary tract symptoms; R33.9 Retention of urine, unspecified; R35.1 Nocturia; H54.7 Unspecified visual loss; Z20.822 Contact with and (suspected) exposure to COVID-19; E66.3 Overweight; Z68.25 Body mass index [BMI] 25.0-25.9, adult; Z79.82 Long term (current) use of aspirin; Z97.2 Presence of dental prosthetic device (complete) (partial); Z79.1 Long term (current) use of non-steroidal anti-inflammatories (NSAID); Z87.891 Personal history of nicotine dependence
CPT/HCPCS: 36415; 43239; 45378; 74177; 80048; 80053; 81003; 83690; 84443; 85014; 85018; 85025; 85027; 85610; 86850; 86900; 86901; 87631; 93005; 99284; 99285; A9270; G0378; Q9967; 0202U; 81001; 87086

== ENCOUNTER 2020-11-12 10:03 | Outpatient (CLI) | payer MEDICARE, OTHER | END 2020-11-12 10:04 | disposition home or self-care (01) | LOC: DI 10:03 | PROVIDERS: ATTEND Family Medicine | DX: I48.91 Unspecified atrial fibrillation (principal); I34.0 Nonrheumatic mitral (valve) insufficiency | CPT/HCPCS: 93306 ==

== ENCOUNTER 2021-01-14 15:13 | Outpatient (CLI) | payer MEDICARE, OTHER | END 2021-01-14 15:14 | disposition home or self-care (01) | LOC: COV 15:13 | PROVIDERS: ATTEND Surgery | DX: Z01.812 Encounter for preprocedural laboratory examination (principal); K22.70 Barrett's esophagus without dysplasia; B96.81 Helicobacter pylori [H. pylori] as the cause of diseases classified elsewhere; Z20.822 Contact with and (suspected) exposure to COVID-19 ==

== ENCOUNTER 2021-01-18 10:20 | Day surgery (SDC) | payer MEDICARE, OTHER ==
--- OUTSIDE RECORDS SUMMARY | 2021-01-18 10:24 | EXTERNAL MEDICAL SUMMARY RPT | Continuity of Care Document ---
:1945 Demographics Phone Unavailable Preferred Language [place] Marital Status Unknown Latter Day Affiliation Unknown Race Unknown Ethnic Group Unknown Author Organization [place] Address [address] [phone] Phone Care Team Providers Name Role Phone Debi Sultana Unavailable Unavailable Miscellaneous, Doctor Unavailable Unavailable Problems date description facility [id number] [id number] Essential (primary) hypertension [facility] [id number] Encounter for preprocedural laboratory examination [facility] [id number] Contact with and (suspected) exposure t o COVID-19 [facility] Procedures date description facility [id number] General Physician [facility]
[2021-01-18] MEDS ORDERED: LACTATED RINGERS 1,000 ML IV ONE (10:29)
[2021-01-18] MEDS ORDERED: BENZOCAINE/TETRACAINE/BUTAMBEN 20 GM ONE (12:42)
[2021-01-18] MEDS ORDERED: LIDO GARGLE 30 ML BOTTLE ONE (12:42)
[2021-01-18] MEDS ORDERED: fentaNYL 250 MCG/5 ML VIAL ONE (12:46)
[2021-01-18] MEDS ORDERED: MIDAZOLAM 2 MG/2 ML VIAL ONE (12:46)
[2021-01-18] MEDS ORDERED: LIDO GARGLE 30 ML BOTTLE PO ONE (13:00)
[2021-01-18] MEDS ORDERED: BENZOCAINE/TETRACAINE/BUTAMBEN 20 GM TOP ONE (13:02)
[2021-01-18] MEDS ORDERED: LACTATED RINGERS 500 ML IV ONE (13:15)
[2021-01-18 13:45] VITALS: BP 127/80
== END 2021-01-18 10:21 | disposition home or self-care (01) ==
LOC: SDS 10:20
PROVIDERS: ATTEND Surgery
PROC: 0DB68ZX Excision of Stomach, Via Natural or Artificial Opening Endoscopic, Diagnostic (ICD-10-PCS; 2021-01-18)
PROC: 0DB98ZX Excision of Duodenum, Via Natural or Artificial Opening Endoscopic, Diagnostic (ICD-10-PCS; principal; 2021-01-18 11:30)
DX: K29.50 Unspecified chronic gastritis without bleeding (principal); K25.9 Gastric ulcer, unspecified as acute or chronic, without hemorrhage or perforation; Z87.19 Personal history of other diseases of the digestive system; Z87.891 Personal history of nicotine dependence
CPT/HCPCS: 43239; A9270; J3010; J7120; 88305; 88342

== ENCOUNTER 2021-05-18 07:19 | Outpatient (CLI) | payer MEDICARE, OTHER ==
[2021-05-18 11:53] LABS: BASOPHILS # (AUTO) 0.1 10^3/uL (0.0-0.1); BASOPHILS % (AUTO) 1.1 %; EOSINOPHILS # (AUTO) 0.2 10^3/uL (0.0-0.7); HCT - HEMATOCRIT 45.9 % (42.0-52.0); HGB - HEMOGLOBIN 14.8 g/dL (14.0-18.0); LYMPHOCYTES # (AUTO) 1.9 10^3/uL (1.5-3.5); LYMPHOCYTES % (AUTO) 29.4 %; MEAN CORPUSCULAR HGB CONC 32.2 g/dL (32.0-36.0); MEAN CORPUSCULAR VOLUME 93.1 fL (80.0-94.0); MEAN PLATELET VOLUME 10.6 fL (7.4-11.4); MONOCYTES # (AUTO) 0.7 10^3/uL (0.0-1.0); NEUTROPHILS # (AUTO) 3.5 10^3/uL (1.5-6.6); NEUTROPHILS % (AUTO) 55.2 %; PLT - PLATELET COUNT 254 10^3/uL (130-450); RED BLOOD COUNT 4.93 10^6/uL (4.70-6.10); RED CELL DISTRIBUTION WIDTH 15.2 % (12.0-15.0); WHITE BLOOD COUNT 6.4 x10^3/uL (4.8-10.8)
[2021-05-18 12:03] LABS: ALBUMIN 4.4 g/dL (3.2-5.5); ALBUMIN/GLOBULIN RATIO 1.3 (1.0-2.2); ALKALINE PHOSPHATASE 67 IU/L (42-121); ALT ALANINE AMINOTRANSFERASE 21 IU/L (10-60); AST ASPARTATE AMINOTRANSFERASE 27 IU/L (10-42); BILIRUBIN,TOTAL 0.7 mg/dL (0.2-1.0); BUN - BLOOD UREA NITROGEN 18 mg/dL (6-20); CALCIUM 9.3 mg/dL (8.5-10.3); CARBON DIOXIDE - CO2 25 mmol/L (21-32); CHLORIDE 103 mmol/L (101-111); CHOL/HDL RATIO 3.4 (<5.0); CHOLESTEROL 159 mg/dL; CREATININE 1.1 mg/dL (0.6-1.2); GFR - MDRD 65 (>89); GLUCOSE 84 mg/dL (70-100); HDL CHOLESTEROL 47 mg/dL; LDL CHOLESTEROL,CALCULATED 99 mg/dL; LDL/HDL RATIO 2.1 (<3.6); SODIUM 140 mmol/L (135-145); TOTAL PROTEIN 7.7 g/dL (6.7-8.2); TRIGLYCERIDES 67 mg/dL; VLDL CHOLESTEROL 13 mg/dL
== END 2021-05-18 23:59 | disposition home or self-care (01) ==
LOC: LAB.WCP 07:19
PROVIDERS: ATTEND Family Medicine
DX: I10 Essential (primary) hypertension (principal); E78.5 Hyperlipidemia, unspecified
CPT/HCPCS: 36415; 80053; 80061; 83721; 84443; 85025

== ENCOUNTER 2022-05-04 07:06 | Outpatient (CLI) | payer MEDICARE, OTHER ==
[2022-05-04 14:06] LABS: CHOL/HDL RATIO 4.2 (<5.0); CHOLESTEROL 151 mg/dL; HDL CHOLESTEROL 36 mg/dL; LDL CHOLESTEROL,CALCULATED 103 mg/dL; LDL/HDL RATIO 2.9 (<3.6); TRIGLYCERIDES 58 mg/dL; VLDL CHOLESTEROL 12 mg/dL
== END 2022-05-04 07:07 | disposition home or self-care (01) ==
LOC: LAB.N 07:06
PROVIDERS: ATTEND Physician Assistant
DX: E78.5 Hyperlipidemia, unspecified (principal)
CPT/HCPCS: 36415; 80061; 83721

== ENCOUNTER 2023-01-02 10:49 | Outpatient (CLI) | payer MEDICARE, OTHER ==
--- NOTE | 2023-01-02 11:48 | XRAY Report ---
PROCEDURE: Hip w/Pelvis 2-3V LT INDICATIONS: GREATER TROCHANTERIC BURSITIS,LEFT TECHNIQUE: AP pelvis with lateral view(s) of the left hip(s). COMPARISON: None. FINDINGS: Bones: No displaced fracture or dislocation. Mild bilateral hip degenerative changes. Calcific tendi nopathy seen bilaterally. Soft tissues: Above average fecal loading. No suspicious calcifications elsewhere. IMPRESSION: Bilateral hip degenerative changes and suspected bilateral calcific tendinopathy. If there is high co ncern for further derangement, consider MRI evaluation. Reviewed by: Cristian Gamez MD on 01/02/2023 11:47 AM PDT Approved by: Cristian Gamez MD on 01/02/2023 11:47 AM PDT Station ID: [id number]
== END 2023-01-02 10:50 | disposition home or self-care (01) ==
LOC: DI 10:49
PROVIDERS: ATTEND Internal Medicine
DX: M16.0 Bilateral primary osteoarthritis of hip (principal)

== ENCOUNTER 2023-03-22 08:07 | Day surgery (SDC) | payer MEDICARE, OTHER ==
[2023-03-22] MEDS ORDERED: LACTATED RINGERS 1,000 ML IV ONE ×2 (08:47→10:28)
--- NOTE | 2023-03-22 09:01 | ANESTHESIA ---
Pre-Anesthesia VS, & Labs - Diagnosis metaplasia stomach and esophagus - Procedure EGD with biopsies Vital Signs: Temp Pulse Resp BP Pulse Ox O2 Flow Rate 35.8 C L 96 20 151/92 H 96 03/22/23 08:29 03/22/23 08:29 03/22/23 08:29 03/22/23 08:29 03/22/23 08:29 Height: 5 ft 9 in Weight (kg): 74.1 kg Body Mass Index: 24.1 BMI Classification: Normal - NPO >8 hours Home Medications and Allergies Home Medications: Ambulatory Orders Levothyroxine [Synthroid] 50 mcg PO QDAC 03/22/23 Apixaban [Eliquis] 5 mg PO BID 05/04/21 Simvastatin [Zocor] 10 mg PO QPM 10/08/21 [id number] CD [Cardizem Cd] 120 mg PO DAILY 10/08/21 Levothyroxine [Synthroid] 50 mcg PO QDAC 03/22/23 Allergies/Adverse Reactions: Allergies Allergy/AdvReac Type Severity Reaction Status Date / Time amoxicillin Allergy Rash Verified 09/01/16 13:52 Anes History & Medical History - Anesthetic History Anesthesia Complications: reports: No previous complications - Medical History Cardiovascular: reports: Hypertension, High cholesterol Pulmonary: reports: None Gastrointestinal: reports: None Urinary: reports: Benign prostate hypertrophy, Retention, Nocturia Neuro: reports: None Musculoskeletal: reports: None Endocrine/Autoimmune: reports: None Blood Disorders: reports: None Skin: reports: None Smoking Status: Former smoker Psychosocial: reports: No issues indicated History of Cancer?: Yes (Lung cancer s/p radiaton and chemo) - Surgical History General: reports: Colonoscopy, EGD Eyes Ears Nose Throat (EENT): reports: Tonsil/Adenoidectomy Exam General: Alert, Oriented x3, Cooperative, No acute distress Dental: Poor dentition Mouth Openin Fingerbreadth Neck Mobility: Normal Mallampati classification: II Thyromental Distance: 4-6 cm Mental/Cognitive Status: Alert/Oriented X3, Normal for patient Plan Anesthesia Type: General, Total IV Consent for Procedure(s) Verified and Reviewed: Yes Code Status: Attempt Resuscitation ASA classification: 3-Severe systemic disease Is this case an emergency?: No
[2023-03-22 10:57] VITALS: BP 106/77
--- NOTE | 2023-03-22 13:41 | ANESTHESIA POST OP EVALUATION ---
Anesthesia Post Eval - Post Anesthesia Eval Vitals: Last Vital Signs Temp 36.4 C L 03/22/23 10:47 Pulse 79 03/22/23 10:47 Resp 15 03/22/23 10:47 BP 106/77 03/22/23 10:47 Pulse Ox 94 03/22/23 10:47 O2 Flow Rate CV Function Including HR & BP: Stable Pain Control: Satisfactory Nausea & Vomiting: Negative Mental Status: Baseline Respiratory Status: Airway Patent Hydration Status: Satisfactory Anesthesia Complications: None
== END 2023-03-22 08:08 | disposition home or self-care (01) ==
LOC: SDS 08:07
PROVIDERS: ATTEND Surgery
PROC: 0DB78ZX Excision of Stomach, Pylorus, Via Natural or Artificial Opening Endoscopic, Diagnostic (ICD-10-PCS; 2023-03-22)
PROC: 0DB68ZX Excision of Stomach, Via Natural or Artificial Opening Endoscopic, Diagnostic (ICD-10-PCS; 2023-03-22)
PROC: 0DB58ZX Excision of Esophagus, Via Natural or Artificial Opening Endoscopic, Diagnostic (ICD-10-PCS; 2023-03-22)
PROC: 0DB48ZX Excision of Esophagogastric Junction, Via Natural or Artificial Opening Endoscopic, Diagnostic (ICD-10-PCS; principal; 2023-03-22 09:45)
DX: K22.70 Barrett's esophagus without dysplasia (principal); K29.40 Chronic atrophic gastritis without bleeding; K44.9 Diaphragmatic hernia without obstruction or gangrene; I10 Essential (primary) hypertension; Z87.891 Personal history of nicotine dependence
CPT/HCPCS: 43239; J7120

== ENCOUNTER 2024-03-14 07:43 | Outpatient (CLI) | payer MEDICARE, OTHER ==
[2024-03-14 12:21] LABS: BASOPHILS # (AUTO) 0.1 10^3/uL (0.0-0.1); BASOPHILS % (AUTO) 1.8 %; EOSINOPHILS # (AUTO) 0.2 10^3/uL (0.0-0.7); HCT - HEMATOCRIT 45.8 % (42.0-52.0); HGB - HEMOGLOBIN 14.3 g/dL (14.0-18.0); LYMPHOCYTES # (AUTO) 0.9 10^3/uL (1.5-3.5); LYMPHOCYTES % (AUTO) 18.2 %; MEAN CORPUSCULAR HEMOGLOBIN 29.3 pg (27.0-31.0); MEAN CORPUSCULAR HGB CONC 31.2 g/dL (32.0-36.0); MEAN CORPUSCULAR VOLUME 93.9 fL (80.0-94.0); MEAN PLATELET VOLUME 9.9 fL (7.4-11.4); MONOCYTES # (AUTO) 0.6 10^3/uL (0.0-1.0); MONOCYTES % (AUTO) 12.4 %; NEUTROPHILS # (AUTO) 3.2 10^3/uL (1.5-6.6); NEUTROPHILS % (AUTO) 63.4 %; PLT - PLATELET COUNT 315 10^3/uL (130-450); RED BLOOD COUNT 4.88 10^6/uL (4.70-6.10); RED CELL DISTRIBUTION WIDTH 14.6 % (12.0-15.0)
[2024-03-14 12:46] LABS: ALBUMIN 4.3 g/dL (3.2-5.5); ALBUMIN/GLOBULIN RATIO 1.5 (1.0-2.2); ALKALINE PHOSPHATASE 91 IU/L (42-121); ALT ALANINE AMINOTRANSFERASE 15 IU/L (10-60); AST ASPARTATE AMINOTRANSFERASE 17 IU/L (10-42); BILIRUBIN,TOTAL 0.8 mg/dL (0.2-1.0); BUN - BLOOD UREA NITROGEN 21 mg/dL (6-20); CARBON DIOXIDE - CO2 30 mmol/L (21-32); CHLORIDE 103 mmol/L (101-111); CHOL/HDL RATIO 4.1 (<5.0); CHOLESTEROL 160 mg/dL; CREATININE 1.1 mg/dL (0.6-1.3); GFR - MDRD 65 (>89); GLUCOSE 97 mg/dL (74-104); HDL CHOLESTEROL 39 mg/dL; LDL CHOLESTEROL,CALCULATED 105 mg/dL; LDL/HDL RATIO 2.7 (<3.6); POTASSIUM 5.6 mmol/L (3.5-4.5); SODIUM 138 mmol/L (135-145); TOTAL PROTEIN 7.2 g/dL (6.4-8.9); TRIGLYCERIDES 80 mg/dL; VLDL CHOLESTEROL 16 mg/dL
[2024-03-14 12:51] LABS: THYROID STIMULATING HORMONE 4.54 uIU/mL (0.34-5.60)
== END 2024-03-14 07:44 | disposition home or self-care (01) ==
LOC: LAB.N 07:43
PROVIDERS: ATTEND Physician Assistant
DX: I10 Essential (primary) hypertension (principal); C34.11 Malignant neoplasm of upper lobe, right bronchus or lung; E78.5 Hyperlipidemia, unspecified; N40.1 Benign prostatic hyperplasia with lower urinary tract symptoms; Z12.5 Encounter for screening for malignant neoplasm of prostate; E03.9 Hypothyroidism, unspecified
CPT/HCPCS: 36415; 80053; 80061; 83721; 84153; 84439; 84443; 85025

== ENCOUNTER 2024-03-26 07:15 | Outpatient (CLI) | payer MEDICARE, OTHER ==
[2024-03-26 13:05] LABS: CALCIUM 9.4 mg/dL (8.5-10.3); CREATININE 1.1 mg/dL (0.6-1.3); POTASSIUM 4.4 mmol/L (3.5-4.5)
== END 2024-03-26 07:16 | disposition home or self-care (01) ==
LOC: LAB.N 07:15
PROVIDERS: ATTEND Physician Assistant
DX: E87.5 Hyperkalemia (principal)
CPT/HCPCS: 36415; 80048